=== PATIENT | male | born 1965 | race Caucasian/White ===

== ENCOUNTER 2017-07-22 10:34 | Day surgery (SDC) | payer MEDICAID, SELFPAY ==
[2017-07-22 11:11] VITALS: BP 122/83; BP 134/79; PULSE 80; PULSE 84; RESP 18; TEMP 36.8; O2SAT 97; O2SAT 98
[2017-07-22 11:36] VITALS: BP 128/96; PULSE 76; RESP 18; O2SAT 97
--- NOTE | 2017-07-22 11:37 | HMH.PMPROC ---
- Procedure Date: 07/22/17 Time: 11:41 Anesthesiologist:: Scott Gant CRNA Complications:: None Pre-procedure Diagnosis:: Disc disease lumbar spine multiple levels. Lumbar radiculopathy symptoms. Lumbar postlaminectomy syndrome. Post-procedure Diagnosis:: Same. Indications for Procedure:: This patient is a very pleasant 51-year-old white male that we are treating for chronic low back pain secondary to degenerative disc disease lumbar spine. Lumbar postlaminectomy syndrome. Or radiculopathy symptoms. We can manage him with intrathecal pain pump hydromorphone 1 mg/mL. We will increase his concentration today to 2 mg/mL. His rate will be continued at 0.17 mg per day. He reports today he is doing very well. Slight pain in the lumbar spine area at times. Objective: Patient is awake alert oriented ?3. No acute distress. Flexion extension the lumbar spine somewhat guarded secondary to pain. Deep tendon reflexes upper and lower extremities normal. Motor strength upper and lower extremities normal. There is no gross sensory deficit. Gait is normal. Procedure Details:: Details of the procedure were explained to the patient. Patient was taken to the procedure room placed in the sitting position. Pain pump was cleansed using chlorhexidine as a cleansing solution. The pump was accessed with ease using a 22-gauge needle from the refill kit. 10 mL of solution was withdrawn and discarded appropriately. The pump was then filled with 20 cc of hydromorphone 2 mg/mL. The pump was interrogated. The rate was continued at 0.17 mg per day. Patient tolerated the procedure without difficulty. There were no complications. Plan and Disposition:: Patient was reevaluated 10 minutes post procedure. He is doing very well. He will return to see us in the pain clinic further evaluation.
[2017-07-22 11:38] VITALS: BP 135/95; PULSE 89; RESP 20; O2SAT 97
== END 2017-07-22 11:55 | disposition home or self-care (01) ==
LOC: SC.PAINP 10:37
PROVIDERS: Family Provider Nurse Practitioner Family; PCP Nurse Practitioner Family; Visit Provider Nurse Anesthetist, Certified Registered
DX: M51.16 Intervertebral disc disorders with radiculopathy, lumbar region (principal); M96.1 Postlaminectomy syndrome, not elsewhere classified
CPT/HCPCS: 95991

== ENCOUNTER 2019-11-05 10:16 | Day surgery (SDC) | payer MEDICARE, SELFPAY ==
[2019-11-05 10:30] VITALS: BP 142/83; PULSE 74; RESP 18; TEMP 36.6; O2SAT 97; BMI 27.1
[2019-11-05 10:57] VITALS: BP 132/85; PULSE 85
[2019-11-05 10:58] VITALS: BP 128/89; PULSE 75; RESP 18; TEMP 36.6; O2SAT 99
--- NOTE | 2019-11-05 11:01 | HMH.PMPROC ---
- Procedure Date: 11/05/19 Time: 11:01 Anesthesiologist:: Rad Mooney MD Complications:: None Pre-procedure Diagnosis:: Degenerative disc disease of lumbar spine with lumbar radiculopathy symptoms Post-procedure Diagnosis:: Same Indications for Procedure:: This patient is a pleasant 54-year-old white male who we are treating for low back pain with lumbar radiculopathy symptoms. He is doing well with his current intrathecal Dilaudid dose of 0.22 mg/day. He is having some increasing pain with increased activity. We will refill his pump and increase his infusion slightly today. Juan Manuel and urine drug screen are all appropriate Juan Manuel [phone]. He does have an antalgic gait. Motor strength of the lower extremities is 5/5. There are no gross sensory deficit. Procedure Details:: Pain pump refill Informed consent was obtained and the risks and benefits of the procedure was explained to the patient. The patient was taken to the procedure room. The pump was interrogated. The area over the pump was prepped using ChloraPrep. The pump was accessed with a 22-gauge needle. Approximately 2 mL's of the intrathecal solution was withdrawn and discarded. The pump was then refilled with 20 mL's of intrathecal Dilaudid 2 mg/mL. The pump was interrogated and the infusion was increased to 0.25 mg/day. The patient tolerated the procedure well with no complication. Plan and Disposition:: We will follow-up with him at his next pump refill. He has any problems or questions he is to call us back in the pain clinic.
[2019-11-05 11:06] VITALS: BP 144/84; PULSE 80; RESP 18; O2SAT 97
== END 2019-11-05 11:08 | disposition home or self-care (01) ==
LOC: SC.PAINP 10:16
PROVIDERS: PCP Nurse Practitioner Family; Visit Provider Anesthesiology
DX: M51.16 Intervertebral disc disorders with radiculopathy, lumbar region (principal)
CPT/HCPCS: 62370

== ENCOUNTER 2020-03-06 14:31 | Day surgery (SDC) | payer MEDICARE, SELFPAY ==
[2020-03-06 15:11] VITALS: BP 145/89; PULSE 73; RESP 18; TEMP 36.4; O2SAT 94; BMI 31.1
[2020-03-06 15:51] VITALS: BP 126/86; PULSE 78; RESP 18
[2020-03-06 15:53] VITALS: BP 126/86; PULSE 76; RESP 18; O2SAT 97
[2020-03-06 16:03] VITALS: BP 139/97; PULSE 79; RESP 18; O2SAT 96
--- NOTE | 2020-03-09 16:05 | P.PCN_ITS ---
- Procedure Date: 03/06/20 Time: 15:45 Anesthesiologist:: Mikki Gonzales APRN Complications:: None Pre-procedure Diagnosis:: Degenerative disc disease lumbar spine lumbar radiculopathy Post-procedure Diagnosis:: Same Indications for Procedure:: Patient is a pleasant 54-year-old white male who presents today for intrathecal pain pump refill and reprogram. Overall he is doing well with his intrathecal infusion of Dilaudid 0.25 mg a day. He would like a slight increase. He denies side effects to his medication. He rates his pain today 4 out of 10. Patient Juan Manuel reviewed and appropriate urine drug screens have been appropriate. 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 The patient was taken to the procedure room where noninvasive monitoring was placed including noninvasive blood pressure cuff and pulse oximeter. Patient's pump was interrogated. The area over the pump was cleansed with chlorhexidine as a cleansing solution. In sterile fashion the pump was accessed with a 22-gauge needle. Approximately 5 mL's were removed of the pump solution and discarded appropriately. The pump was then refilled with 20 mL's of Dilaudid 2 mg/mL. The needle was withdrawn and a bandage was placed over the puncture site. The infusion rate was reprogrammed to increase to 0.3 mg/day. The patient tolerated the procedure well. Plan and Disposition:: See the patient back at his next intrathecal pain pump refill and reprogram he has been instructed to call the office if he has any issues prior to his next appointment. Dr. Mooney has reviewed this note and agrees with this plan of care. This note was dictated using voice recognition software and may contain errors or omissions
== END 2020-03-06 16:04 | disposition home or self-care (01) ==
LOC: SC.PAINP 14:33
PROVIDERS: PCP Nurse Practitioner Family; Visit Provider Clinical Nurse Specialist Family Health
DX: M51.16 Intervertebral disc disorders with radiculopathy, lumbar region (principal); I10 Essential (primary) hypertension; E78.5 Hyperlipidemia, unspecified; Z79.899 Other long term (current) drug therapy; Z88.1 Allergy status to other antibiotic agents; Z91.041 Radiographic dye allergy status
CPT/HCPCS: 62370

== ENCOUNTER 2020-06-19 14:12 | Day surgery (SDC) | payer MEDICARE, SELFPAY ==
[2020-06-19 14:29] VITALS: BP 139/80; PULSE 80; RESP 18; TEMP 36.8; O2SAT 98; BMI 30.3
[2020-06-19 14:50] VITALS: BP 135/75; PULSE 82; RESP 18; O2SAT 98
[2020-06-19 14:54] VITALS: BP 138/88; PULSE 87; RESP 18; O2SAT 98
--- NOTE | 2020-06-19 14:57 | HMH.PMPROC ---
- Procedure Date: 06/19/20 Time: 14:57 Anesthesiologist:: Mikki Gonzales APRN Complications:: None Pre-procedure Diagnosis:: Degenerative disc disease lumbar spine lumbar radiculopathy Post-procedure Diagnosis:: Same Indications for Procedure:: Patient is a pleasant 54-year-old white male who presents today for intrathecal pain pump refill and reprogram. Patient currently on a Dilaudid pump 0.3 mg/day. Overall doing well. He denies side effects to his medication currently rates his pain a 6 out of 10 however he states that he recently did a large amount of yard work including cutting a tree down which made his pain worse. Overall he is doing well on his intrathecal therapy. Patient [facility] #[id number] reviewed and appropriate. Drug screens have been appropriate. 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 The patient was taken to the procedure room where noninvasive monitoring was placed including noninvasive blood pressure cuff and pulse oximeter. Patient's pump was interrogated. The area over the pump was cleansed with chlorhexidine as a cleansing solution. In sterile fashion the pump was accessed with a 22-gauge needle. Approximately 3.5 mL's were removed of the pump solution and discarded appropriately. The pump was then refilled with 20 mL's of Dilaudid 2 mg/mL. The needle was withdrawn and a bandage was placed over the puncture site. The infusion rate was reprogrammed to continued at 0.3 mg/day. The patient tolerated the procedure well. Plan and Disposition:: We will see the patient back at his next intrathecal pain pump refill and reprogram he has been instructed to call the office if he has any issues prior to his next appointment. Dr. Mooney has reviewed this note and agrees with this plan of care. This note was dictated using voice recognition software and may contain errors or omissions
[2020-06-19 15:05] VITALS: BP 149/93; PULSE 80; RESP 18; O2SAT 98
== END 2020-06-19 15:06 | disposition home or self-care (01) ==
LOC: SC.PAINP 14:13
PROVIDERS: PCP Nurse Practitioner Family; Visit Provider Clinical Nurse Specialist Family Health
DX: M51.16 Intervertebral disc disorders with radiculopathy, lumbar region (principal); Z88.1 Allergy status to other antibiotic agents; Z79.899 Other long term (current) drug therapy; E78.5 Hyperlipidemia, unspecified; I10 Essential (primary) hypertension; K21.9 Gastro-esophageal reflux disease without esophagitis
CPT/HCPCS: 95991

== ENCOUNTER 2020-10-09 14:17 | Day surgery (SDC) | payer MEDICARE, SELFPAY ==
[2020-10-09 14:33] VITALS: BP 147/88; PULSE 95; RESP 18; TEMP 36.4; O2SAT 98; BMI 38.3
[2020-10-09 15:05] VITALS: BP 174/78; PULSE 82; RESP 18; O2SAT 98
[2020-10-09 15:07] VITALS: BP 175/84; PULSE 74; RESP 18; O2SAT 98
--- NOTE | 2020-10-09 15:08 | HMH.PMPROC ---
- Procedure Date: 10/09/20 Time: 15:08 Anesthesiologist:: Mikki Gonzales APRN Complications:: None Pre-procedure Diagnosis:: Disc disease lumbar spine lumbar radiculopathy, back pain Post-procedure Diagnosis:: Same Indications for Procedure:: Patient is a pleasant 54-year-old white male who presents today for intrathecal pain pump refill and reprogram he is currently on Dilaudid 0.3 mg/day. Overall doing well. He denies side effects with medication. He rates his pain today 4 out of 10 he does not need any changes today Juan Manuel and drug screens appropriate. Procedure Details:: Informed consent was obtained and the risk and benefits of the procedure were explained to the patient. The patient was taken to the procedure room where noninvasive monitoring was placed including noninvasive blood pressure cuff and pulse oximeter. Patient's pump was interrogated. The area over the pump was cleansed with chlorhexidine as a cleansing solution. In sterile fashion the pump was accessed with a 22-gauge needle. Approximately 3 mL's were removed of the pump solution and discarded appropriately. The pump was then refilled with 20 mL's of Dilaudid 2 mg/mL. The needle was withdrawn and a bandage was placed over the puncture site. The infusion rate was reprogrammed to continued at 0.3 mg/day. The patient tolerated the procedure well. Plan and Disposition:: I will see the patient back at his next intrathecal pain pump refill and reprogram he has been instructed to call the office if he has any issues prior to his next appointment. Dr. Mooney has reviewed this note and agrees with this plan of care. This note was dictated using voice recognition software and may contain errors or omissions
[2020-10-09 15:13] VITALS: BP 137/88; PULSE 80; RESP 20; O2SAT 98
== END 2020-10-09 15:14 | disposition home or self-care (01) ==
LOC: SC.PAINP 14:18
PROVIDERS: PCP Nurse Practitioner Family; Visit Provider Clinical Nurse Specialist Family Health
DX: M51.16 Intervertebral disc disorders with radiculopathy, lumbar region (principal); Z45.1 Encounter for adjustment and management of infusion pump; E78.5 Hyperlipidemia, unspecified; I10 Essential (primary) hypertension; G43.909 Migraine, unspecified, not intractable, without status migrainosus; N40.0 Benign prostatic hyperplasia without lower urinary tract symptoms; K21.9 Gastro-esophageal reflux disease without esophagitis; Z88.1 Allergy status to other antibiotic agents; Z91.041 Radiographic dye allergy status; Z79.899 Other long term (current) drug therapy
CPT/HCPCS: 95991

== ENCOUNTER 2021-02-05 13:57 | Day surgery (SDC) | payer MEDICARE, SELFPAY ==
[2021-02-05 14:26] VITALS: BP 139/74; PULSE 81; RESP 18; TEMP 36.4; O2SAT 98; BMI 32.4
[2021-02-05 15:07] VITALS: BP 132/89; PULSE 67; RESP 18; O2SAT 95
[2021-02-05 15:08] VITALS: BP 132/89; PULSE 62; RESP 18; O2SAT 95
--- NOTE | 2021-02-05 15:20 | P.PCN_ITS ---
- Procedure Date: 02/05/21 Time: 15:20 Anesthesiologist:: Mari Hernandez APRN Complications:: None Pre-procedure Diagnosis:: Degenerative disc disease lumbar spine with lumbar radiculopathy symptoms Post-procedure Diagnosis:: Same Indications for Procedure:: Patient is a pleasant 55-year-old white male who presents today for intrathecal pain pump refill and reprogram. He is currently on Dilaudid at 0.3 mg/day. He was increased at the last visit. He says since then, he has an section of bugs crawling . He says he also had the sensation with morphine. We will decrease him today to see if his symptoms subside. His Juan Manuel and drug screen are appropriate. Patient does rate his pain a 4 out of 10. Physical exam General: Alert and oriented x3, no acute distress, pleasant and cooperative, [on room air] Lungs: Respirations even and unlabored, symmetrical chest expansion Eyes: PERRL Musculoskeletal: Flexion and extension of lumbar [spine] somewhat guarded secondary to pain, strength in upper and lower extremities [5/5], [antalgic gait noted] Neurological: Speech clear, [roof bolter helper equal], no gross sensory deficit Procedure Details:: Informed consent was obtained and the risk and benefits of the procedure were explained to the patient. The patient was taken to the procedure room where noninvasive monitoring was placed including noninvasive blood pressure cuff and pulse oximeter. Patient's pump was interrogated. The area over the pump was cleansed with chlorhexidine as a cleansing solution. In sterile fashion the pump was accessed with a 22-gauge needle. Approximately 2 mls of the pump solution was removed and discarded appropriately. The pump was then refilled with 20 mL's of Dilaudid 2 mg per male. The needle was withdrawn and a bandage was placed over the puncture site. The infusion rate was reprogrammed at increased to Dilaudid at 0.27 mg/day. The patient tolerated well with no complication. Plan and Disposition:: We will see the patient back at the next refill. If the patient has any questions, contact the clinic. Patient has been instructed to contact the clinic with any concerns before the next appointment. Dr. Mooney has reviewed this note and agrees with this plan of care. This note was dictated using voice recognition software and make contain errors or omissions.
[2021-02-05 15:21] VITALS: BP 123/71; PULSE 70; RESP 18; O2SAT 98
== END 2021-02-05 15:21 | disposition home or self-care (01) ==
LOC: SC.PAINP 14:01
PROVIDERS: PCP Nurse Practitioner Family; Visit Provider Clinical Nurse Specialist Family Health
DX: M51.16 Intervertebral disc disorders with radiculopathy, lumbar region (principal); Z45.1 Encounter for adjustment and management of infusion pump
CPT/HCPCS: 62370

== ENCOUNTER 2021-05-29 12:47 | Day surgery (SDC) | payer MEDICARE, SELFPAY ==
[2021-05-29 13:06] VITALS: BP 152/89; PULSE 70; RESP 18; TEMP 36.7; O2SAT 98; BMI 35.5
--- NOTE | 2021-05-29 13:14 | HMH.PMPROC ---
- Procedure Date: 05/29/21 Time: 13:14 Anesthesiologist:: Mari Hernandez APRN Complications:: None Pre-procedure Diagnosis:: Degenerative disc disease bar spine with lumbar radiculopathy symptoms, Low back pain Post-procedure Diagnosis:: Same Indications for Procedure:: Patient is a 55-year-old white male who presents today for intrathecal pain pump refill and reprogram. He is having low back pain with radiation into bilateral lower extremities. He is currently on Dilaudid at 0.27 mg/day and denies any side effects at this time. He does rate his pain a 6 out of 10. He would like an increase today. He says winter months are coming and his pain seems to worsen. The colder weather. Patient does travel from [facility] and is requesting to only return every 6 months for refills. We will increase the patient's concentration of medication at his next visit so that we can prolong his time between refills. He is currently on Dilaudid at 0.27 mg/day with a concentration of 2 mg/mL. Patient's Juan Manuel and drug screen are appropriate. Physical exam General: Alert and oriented x3, no acute distress, pleasant and cooperative Lungs: Respirations even and unlabored, symmetrical chest expansion Eyes: PERRL Musculoskeletal: Flexion and extension of lumbar [spine] somewhat guarded secondary to pain, [antalgic gait noted] Neurological: Speech clear, no gross sensory deficit Procedure Details:: Informed consent was obtained and the risk and benefits of the procedure were explained to the patient. The patient was taken to the procedure room where noninvasive monitoring was placed including noninvasive blood pressure cuff and pulse oximeter. Patient's pump was interrogated. The area over the pump was cleansed with chlorhexidine as a cleansing solution. In sterile fashion the pump was accessed with a 22-gauge needle. Approximately 5 mls of the pump solution was removed and discarded appropriately. The pump was then refilled with 20 mL's of Dilaudid 2 mg/mL. The needle was withdrawn and a bandage was placed over the puncture site. The infusion rate was reprogrammed at Dilaudid at 0.31 mg/day. The patient tolerated well with no complication. Plan and Disposition:: We will plan to increase the patient's concentration medication to Dilaudid at 5 mg/mL at next refill. This will help prolong between refill visits. He does travel from [facility]. He has been advised he can contact the clinic if he has any problems before his next appointment. Risks and benefits of the medication have been explained in detail to the patient. The patient does understand the risk of dependence on the medication when given over a prolonged period. Patient has been advised of risks of oversedation with the prescribed medication. Narcan has been offered to the paitent in the event of oversedation. Patient has been advised that a family member should also be educated regarding administration of Narcan. The patient has been advised to consult with his/her primary care provider and pharmacist regarding drug-drug interaction of medications currently prescribed. Patient has been prescribed a controlled substance after being counseled on the medication, medication safety, and possible side effects. JUAN MANUEL report has been obtained and reviewed prior to prescription and found to be appropriate. Opioid contract was reviewed and signed by the patient, and that they have agreed to all of the terms set forth by our compliance program. Patient has been instructed to contact the clinic with any concerns before the next appointment. Dr. Mooney has reviewed this note and agrees with this plan of care. This note was dictated using voice recognition software and make contain errors or omissions.
[2021-05-29 13:16] VITALS: BP 172/76; PULSE 68; RESP 18; O2SAT 98
[2021-05-29 13:18] VITALS: PULSE 78; RESP 18; O2SAT 95
[2021-05-29 13:35] VITALS: BP 152/89; PULSE 70; RESP 20; O2SAT 98
== END 2021-05-29 13:36 | disposition home or self-care (01) ==
LOC: SC.PAINP 12:49
PROVIDERS: PCP Nurse Practitioner Family; Visit Provider Clinical Nurse Specialist Family Health
DX: M51.16 Intervertebral disc disorders with radiculopathy, lumbar region (principal); Z45.1 Encounter for adjustment and management of infusion pump
CPT/HCPCS: 62370; 80305

== ENCOUNTER → 2021-05-29 13:46 | Outpatient (CLI) | payer MEDICARE, SELFPAY ==
[2021-05-29 14:56] LABS: Amphetamine/Metha Screen,Urine Negative ng/ml (<1000); Barbiturates Screen,Urine Negative ng/ml (<200)
[2021-05-29 14:58] LABS: Benzodiazepines Screen,Urine Negative ng/ml (<200)
[2021-05-29 14:59] LABS: Cannabinoid Screen,Urine Negative ng/ml (<50); Cocaine Screen,Urine Negative ng/ml (<300)
[2021-05-29 15:00] LABS: Methadone Screen,Urine Negative ng/ml (<300)
[2021-05-29 15:01] LABS: Opiate Screen,Urine Negative ng/ml (<300); Phencyclidine Screen,Urine Negative ng/ml (<25)
== END ==
PROVIDERS: Visit Provider Clinical Nurse Specialist Family Health
DX: Z79.891 Long term (current) use of opiate analgesic (principal)
CPT/HCPCS: 80305

== ENCOUNTER 2021-09-10 12:41 | Day surgery (SDC) | payer MEDICARE, SELFPAY ==
[2021-09-10 13:10] VITALS: BP 131/89; PULSE 84; RESP 20; TEMP 36.5; O2SAT 96; BMI 31.1
[2021-09-10 13:22] VITALS: BP 167/92; PULSE 85; RESP 18; O2SAT 95
--- NOTE | 2021-09-10 13:39 | P.PCN_ITS ---
- Procedure Date: 09/10/21 Time: 13:39 Anesthesiologist:: Fatimah Rodriguez MD Complications:: None Pre-procedure Diagnosis:: Degenerative disc disease of the lumbar spine with lumbar radiculopathy Post-procedure Diagnosis:: Same Indications for Procedure:: This patient is a very pleasant 55-year-old white male who presents today for a pump refill and reprogram. He is currently being treated for degenerative disease of lumbar spine with lumbar radiculopathy. He has a pump with a flow [place] system with intrathecal Dilaudid 2 mg/mL at 0.31 mg/day on constant flow. He states his pain has gradually worsened since the last refill at which time he believed he was having side effects related to the intrathecal Dilaudid and was requesting to decrease. However today he states that since his pain has increased he is requesting a pump adjustment with an increase to his daily dose settings. The plan for today is for the patient to undergo intrathecal pain pump refill and reprogram with an increase in his daily dose settings by 20%. Procedure Details:: Informed consent was obtained and the risks and benefits of the procedure was explained to the patient. The patient was taken to the procedure room. The pump was interrogated. The area over the pump was prepped using ChloraPrep. The pump was accessed with a 22-gauge needle. Approximately 4.5 mL's of the intrathecal solution was withdrawn and discarded. The pump was then refilled with 20 mL's of intrathecal [Dilaudid 2 mg/mL]. The pump was interrogated and the infusion was [increased to 0.37 mg per day]. The patient tolerated the procedure well with no complications. Next refill date is on [December 07, 2021]. Plan and Disposition:: Follow-up with this patient on her before his next refill appointment. We will reassess his chronic pain symptoms and make any additional pump adjustments if indicated. [facility] #[id number] and prior drug screens reviewed and appropriate.
[2021-09-10 13:40] VITALS: BP 136/75; PULSE 75; RESP 20; O2SAT 98
[2021-09-10 13:49] VITALS: BP 168/90; PULSE 60; RESP 18; O2SAT 90
[2021-09-10 17:55] LABS: Amphetamine/Metha Screen,Urine Negative ng/ml (<1000)
[2021-09-10 17:56] LABS: Barbiturates Screen,Urine Negative ng/ml (<200)
[2021-09-10 17:58] LABS: Benzodiazepines Screen,Urine Negative ng/ml (<200); Cannabinoid Screen,Urine Negative ng/ml (<50)
[2021-09-10 17:59] LABS: Cocaine Screen,Urine Negative ng/ml (<300); Methadone Screen,Urine Negative ng/ml (<300)
[2021-09-10 18:00] LABS: Opiate Screen,Urine Negative ng/ml (<300)
[2021-09-10 18:01] LABS: Phencyclidine Screen,Urine Negative ng/ml (<25)
[2021-09-25 19:27] LABS: Opiates Negative (Cutoff=100)
== END 2021-09-10 13:40 | disposition home or self-care (01) ==
LOC: SC.PAINP 12:43
PROVIDERS: PCP Nurse Practitioner Family; Visit Provider Anesthesiology Pain Medicine
DX: M51.16 Intervertebral disc disorders with radiculopathy, lumbar region (principal); Z45.1 Encounter for adjustment and management of infusion pump; E78.5 Hyperlipidemia, unspecified; I10 Essential (primary) hypertension; K21.9 Gastro-esophageal reflux disease without esophagitis; Z72.0 Tobacco use
CPT/HCPCS: 62370; 80305; 80361; 80365; G0480

== ENCOUNTER 2021-11-26 13:12 | Day surgery (SDC) | payer MEDICARE, SELFPAY ==
[2021-11-26 13:36] VITALS: BP 140/72; PULSE 93; RESP 20; TEMP 37.1; O2SAT 95; BMI 34.2
[2021-11-26 13:55] VITALS: BP 142/97; PULSE 87; RESP 18; O2SAT 96
[2021-11-26 13:57] VITALS: BP 144/84; PULSE 85; RESP 18; O2SAT 95
--- NOTE | 2021-11-26 14:00 | HMH.PMPROC ---
- Procedure Date: 11/26/21 Time: 14:00 Anesthesiologist:: JORGITO Dunbar Complications:: None Pre-procedure Diagnosis:: Degenerative disc disease of lumbar spine with lumbar radiculopathy symptoms Post-procedure Diagnosis:: Same Indications for Procedure:: Patient is a pleasant 56-year-old male who presents today for intrathecal pain pump refill and reprogram. The patient is being treated for degenerative disc disease of lumbar spine with lumbar radiculopathy symptoms. Patient is currently being managed with Dilaudid 2 mg/mL at a rate of 0.37 mg/day. Patient denies any side effects from this medication. Patient rates pain a 4 out of 10. Drug screen is appropriate. Juan Manuel [phone] with an active morphine equivalent of 0 has been reviewed and is appropriate. Physical exam General: Alert and oriented x3, no acute distress, pleasant and cooperative Lungs: Respirations even and unlabored, symmetrical chest expansion Eyes: PERRL Musculoskeletal: Flexion and extension of lumbar [spine] somewhat guarded secondary to pain, [antalgic gait noted] Neurological: Speech clear, no gross sensory deficit Procedure Details:: Informed consent was obtained and the risk and benefits of the procedure were explained to the patient. The patient was taken to the procedure room where noninvasive monitoring was placed including noninvasive blood pressure cuff and pulse oximeter. Patient's pump was interrogated. The area over the pump was cleansed with chlorhexidine as a cleansing solution. [Fluoroscopy was used to access the pump]. In sterile fashion the pump was accessed with a 22-gauge needle. Approximately 5 mls of the pump solution was removed and discarded appropriately. The pump was then refilled with 20 mL's of Dilaudid 2 mg/mL. The needle was withdrawn and a bandage was placed over the puncture site. The infusion rate was reprogrammed and continued at Dilaudid 0.37 mg/day. The patient tolerated well with no complication. Plan and Disposition:: Patient states that he has been having some itchiness with the Dilaudid. He was having the same itchiness when he had morphine in but this is not as severe. I will start the patient on Vistaril 25 mg twice a day as needed. We will see the patient back in the clinic at the next intrathecal refill. Patient has been instructed to contact the clinic with any concerns before the next appointment. Dr. Mooney has reviewed this note and agrees with this plan of care. This note was dictated using voice recognition software and make contain errors or omissions.
[2021-11-26 14:08] VITALS: BP 124/74; PULSE 87; RESP 20; O2SAT 93
== END 2021-11-26 14:09 | disposition home or self-care (01) ==
LOC: SC.PAINP 13:14
PROVIDERS: PCP Nurse Practitioner Family; Visit Provider Student in an Organized Health Care Education/Training Program
DX: M51.16 Intervertebral disc disorders with radiculopathy, lumbar region (principal); Z45.1 Encounter for adjustment and management of infusion pump; K21.9 Gastro-esophageal reflux disease without esophagitis; E78.5 Hyperlipidemia, unspecified; I10 Essential (primary) hypertension; M19.90 Unspecified osteoarthritis, unspecified site; G43.909 Migraine, unspecified, not intractable, without status migrainosus; F41.9 Anxiety disorder, unspecified; Z79.899 Other long term (current) drug therapy; Z88.1 Allergy status to other antibiotic agents; Z91.041 Radiographic dye allergy status
CPT/HCPCS: 95991

== ENCOUNTER 2022-02-22 09:24 | Day surgery (SDC) | payer MEDICARE, SELFPAY ==
[2022-02-22 09:47] VITALS: BP 149/63; PULSE 72; TEMP 36.9; O2SAT 95; BMI 32.0
[2022-02-22 10:03] VITALS: BP 158/99; PULSE 52; RESP 20; O2SAT 100
--- NOTE | 2022-02-22 10:07 | HMH.PMPROC ---
- Procedure Date: 02/22/22 Time: 10:07 Anesthesiologist:: Scott Gant CRNA Complications:: None Pre-procedure Diagnosis:: Degenerative disc disease of lumbar spine with lumbar radiculopathy symptoms Post-procedure Diagnosis:: Same Indications for Procedure:: Patient is a pleasant 56-year-old male who presents today for intrathecal pain pump refill and reprogram. Patient is currently being treated for degenerative disc disease of the lumbar spine with lumbar radiculopathy symptoms. Patient rates his pain today a 7 out of 10. We are currently managing his pain with Dilaudid 2 mg/mL at a rate of 0.37 mg/day. Patient denies any side effects from this medication. Patient denies any change to the location or type of pain he experiences. His Juan Manuel is [phone]. Has been reviewed and appropriate. Physical exam General: Alert and oriented x3, no acute distress, pleasant and cooperative Lungs: Respirations even and unlabored, symmetrical chest expansion Eyes: PERRL Musculoskeletal: Flexion extension of lumbar spine somewhat guarded secondary to pain, antalgic gait noted Neurological: Speech clear, no gross sensory deficit Procedure Details:: Informed consent was obtained and the risk and benefits of the procedure were explained to the patient. The patient was taken to the procedure room where noninvasive monitoring was placed on the patient including a noninvasive blood pressure cuff and pulse oximeter. Patient's pump was interrogated. The area over the pump was cleansed with a chlorhexidine as a cleansing solution. In sterile fashion the pump was accessed using a 22-gauge needle. Approximately 3.5 mL of the pump solution was removed and discarded appropriately. The pump was then refilled with 20 mL of Dilaudid 2 mg/mL. The needle was withdrawn and a bandage was placed over the puncture site. The infusion rate was reprogrammed and continued at Dilaudid 0.37 mg/day. Plan and Disposition:: Patient states he is doing well with his current medication regimen. We will see the patient back at the clinic at the next intrathecal pump refill. Patient has been instructed to contact the clinic with any concerns before the next appointment. Dr. Mooney has reviewed this note and agrees with this plan of care. This note has been dictated using voice recognition software and may contain errors or omissions.
[2022-02-22 10:14] VITALS: BP 142/83; PULSE 71; RESP 17; O2SAT 95
== END 2022-02-22 10:15 | disposition home or self-care (01) ==
LOC: SC.PAINP 09:24
PROVIDERS: PCP Nurse Practitioner Family; Visit Provider Nurse Anesthetist, Certified Registered
DX: M51.16 Intervertebral disc disorders with radiculopathy, lumbar region (principal)
CPT/HCPCS: 62370

== ENCOUNTER 2022-05-17 12:01 | Day surgery (SDC) | payer MEDICARE, SELFPAY ==
[2022-05-17 13:07] VITALS: BP 138/71; PULSE 69; RESP 18; TEMP 37.2; O2SAT 91; BMI 31.7
[2022-05-17 13:46] VITALS: BP 113/95; PULSE 65; RESP 18; O2SAT 98
[2022-05-17 13:50] VITALS: BP 126/63; PULSE 70; RESP 18; O2SAT 98
--- NOTE | 2022-05-17 13:54 | P.PCN_ITS ---
[facility] Procedure Note Date: 05/17/22 Time: 13:54
--- NOTE | 2022-05-17 13:54 | P.PCN_ITS ---
Procedure Date: 05/17/22 Time: 13:55 Anesthesiologist:: Rad Mooney MD Complications:: None Pre-procedure Diagnosis:: Degenerative disc disease of lumbar spine with lumbar radiculopathy symptoms Post-procedure Diagnosis:: Same Indications for Procedure:: This patient is a pleasant 56-year-old white male who we are treating for low back pain with lumbar radiculopathy symptoms. He currently has an intrathecal Dilaudid pain pump in place going at 0.37 mg/day. He is doing well with his pum p. We will refill him today and continue him at the same dose. Juan Manuel and drug screen are all appropriate. He does have an antalgic gait. Motor strength of lower extremities is 5/5. There is no gross sensory deficit. Procedure Details:: Informed consent was obtained and the risks and benefits of the procedure was explained to the patient. The patient was taken to the procedure room. The pump was interrogated. The area over the pump was prepped using ChloraPrep. The pump was accessed with a 22-gauge needle. Approximately 4 mL's of the i ntrathecal solution was withdrawn and discarded. The pump was then refilled with 20 mL's of intrathecal Dilaudid 2 mg/mL. The pump was interrogated and the infusion was continued at 0.37 mg/day. The patient tolerated the procedure well with no complication. Plan and disposition: We will follow-up with this patient at his next pump refill. We continued him at 0.37 mg/day of intrathecal Dilaudid. If he has any problems questions she is to call us back in the pain clinic. Plan and Disposition:: We will follow-up with him in 2 weeks. Will reevaluate symptoms at that time.
--- NOTE | 2022-05-17 13:54 | HMH.PROCNOTE ---
[facility] Procedure Note Date: 05/17/22 Time: 13:54
[2022-05-17 13:59] VITALS: BP 128/79; PULSE 70; RESP 18; O2SAT 97
== END 2022-05-17 14:00 | disposition home or self-care (01) ==
PROVIDERS: PCP Nurse Practitioner Family; Visit Provider Anesthesiology
DX: M51.16 Intervertebral disc disorders with radiculopathy, lumbar region (principal)
CPT/HCPCS: 95991

== ENCOUNTER 2022-08-13 10:48 | Day surgery (SDC) | payer MEDICARE, SELFPAY ==
[2022-08-13 10:59] VITALS: BP 166/91; PULSE 95; RESP 18; TEMP 36.6; O2SAT 93; BMI 32.5
[2022-08-13 11:23] VITALS: BP 165/87; PULSE 98; RESP 18; O2SAT 98
[2022-08-13 11:25] VITALS: BP 165/87; PULSE 98; RESP 18; O2SAT 98
[2022-08-13 11:33] VITALS: BP 155/91; PULSE 90; RESP 18; O2SAT 96
--- NOTE | 2022-08-13 11:42 | EXP.PAIN.PRO ---
Procedure Date: 08/13/22 Time: 11:30 Anesthesiologist:: Scott Gant CRNA Complications:: None Pre-procedure Diagnosis:: Degenerative disc disease lumbar spine multilevels. Lumbar radiculopathy symptoms Post-procedure Diagnosis:: Same. Indications for Procedure:: This patient is a pleasant 56-year-old male comes our clinic today for intrathecal pain pump interrogation and refill. He is currently being managed with Dilaudid 2 mg/mL at 0.370 mg/day. Patient doing very well in terms of pain with his current management. Patient complains today of bilateral upper and lower extremities generalized itching. I discussed in detail with the patient regarding this could be coming from the hydromorphone intrathecally. I suggest to the patient Benadryl 50 mg 1 p.o. twice daily. We will see if this helps him. He will return to the clinic for a follow-up visit as needed. Procedure Details:: Details of the procedure explained the patient patient was taken to procedure room placed in sitting position. The area of the pump was cleansed with chlorhexidine as a cleansing solution. The pump was accessed with ease using 22-gauge inch and half needle. 3 mL of solution was withdrawn and discarded appropriately. The pump was then filled with hydromorphone 2 mg/mL. The pump was interrogated and the rate will stay at 0.3700 mg/day. Plan and Disposition:: Patient was discharged without incident.
== END 2022-08-13 11:33 | disposition home or self-care (01) ==
LOC: SC.PAINP 10:48
PROVIDERS: PCP Nurse Practitioner Family; Visit Provider Nurse Anesthetist, Certified Registered
DX: Z45.1 Encounter for adjustment and management of infusion pump (principal); M51.16 Intervertebral disc disorders with radiculopathy, lumbar region
CPT/HCPCS: 95991

== ENCOUNTER 2022-10-29 11:11 | Day surgery (SDC) | payer MEDICARE, SELFPAY ==
[2022-10-29 11:22] VITALS: BP 122/75; PULSE 68; RESP 18; TEMP 36.6; O2SAT 93; BMI 33.2
[2022-10-29 11:29] VITALS: BP 114/90; PULSE 71; RESP 18; O2SAT 97
[2022-10-29 11:30] VITALS: BP 114/90; PULSE 71; RESP 18; O2SAT 97
--- NOTE | 2022-10-29 11:36 | P.PCN_ITS ---
Procedure Date: 10/29/22 Time: 11:30 Anesthesiologist:: Scott Gant CRNA Complications:: None Pre-procedure Diagnosis:: Degenerative disc disease lumbar spine multilevels. Lumbar radiculopathy Post-procedure Diagnosis:: Same. Indications for Procedure:: This patient is a very pleasant 57-year-old male comes our clinic today for intrathecal pain pump interrogation and refill. He is currently being managed with Dilaudid 2 mg/mL at 0.370 mg/day. Patient is requesting increase in his c urrent rate. He is having some increased low back pain that he describes as constant, dull, aching. He does not complain of any side effects or complications regarding intrathecal pain pump management. Procedure Details:: Details of the procedure explained to the patient. The patient was taken to the procedure room placed in the sitting position. The area over the pump was cleansed using chlorhexidine as a cleansing solution. The pump was interrogated. The pump was accessed with ease using a 22-gauge inch and a half needle. 5 mL of solution was withdrawn and discarded appropriately. The pump was then filled with 20 cc of Dilaudid 2 mg/mL. The pump will be increased today by 20% to 0.4440 mg/day. Plan and Disposition:: Patient was discharged without incident
[2022-10-29 11:38] VITALS: BP 135/79; PULSE 72; RESP 18; O2SAT 93
== END 2022-10-29 11:38 | disposition home or self-care (01) ==
PROVIDERS: PCP Nurse Practitioner Family; Visit Provider Nurse Anesthetist, Certified Registered
DX: Z45.1 Encounter for adjustment and management of infusion pump (principal); M51.16 Intervertebral disc disorders with radiculopathy, lumbar region
CPT/HCPCS: 62370

== ENCOUNTER 2022-12-31 10:44 | Day surgery (SDC) | payer MEDICARE, SELFPAY ==
[2022-12-31 10:56] VITALS: BP 134/75; PULSE 83; RESP 18; TEMP 36.4; O2SAT 98; BMI 32.9
[2022-12-31 11:12] VITALS: BP 135/92; PULSE 77; RESP 18; O2SAT 98
[2022-12-31 11:13] VITALS: BP 135/92; PULSE 77; RESP 18; O2SAT 98
[2022-12-31 11:20] VITALS: BP 121/72; PULSE 74; RESP 16; O2SAT 98
--- NOTE | 2022-12-31 11:21 | EXP.PAIN.PRO ---
Procedure Date: 12/31/22 Time: 11:00 Anesthesiologist:: Scott Gant CRNA Complications:: None Pre-procedure Diagnosis:: Degenerative disc lumbar spine multilevels. Lumbar radiculopathy. Lumbar postlaminectomy syndrome. Post-procedure Diagnosis:: Same. Indications for Procedure:: Patient is a very pleasant 57-year-old male that comes our clinic today for intrathecal pain pump interrogation and refill. Patient currently being managed with Dilaudid 2 mg/mL at 0.444 mg/day. Patient requested a slight increase at his last refill visit. He reports doing very well today with his current settings. He does not complain of any side effects or complications with the intrathecal pain pump management. Procedure Details:: Details of the procedure explained to the patient. The patient taken to procedure room placed in the sitting position. The area of the pump was cleansed using chlorhexidine as a cleansing solution. The pump was interrogated. The pump was accessed with ease using a 22-gauge inch and a half needle. 5.5 mL of solution was withdrawn and discarded appropriately. The pump was then filled incrementally with 20 cc of Dilaudid 2 mg/mL. The rate will continue the same at 0.444 mg/day. Plan and Disposition:: Patient tolerated procedure without difficulty. No complications.
== END 2022-12-31 11:20 | disposition home or self-care (01) ==
PROVIDERS: PCP Nurse Practitioner Family; Visit Provider Nurse Anesthetist, Certified Registered
DX: M51.16 Intervertebral disc disorders with radiculopathy, lumbar region (principal); M96.1 Postlaminectomy syndrome, not elsewhere classified
CPT/HCPCS: 95991

== ENCOUNTER 2023-03-04 10:22 | Day surgery (SDC) | payer MEDICARE, SELFPAY ==
[2023-03-04 11:07] VITALS: BP 135/73; PULSE 111; RESP 18; TEMP 36.3; O2SAT 93; BMI 33.2
[2023-03-04 11:19] VITALS: BP 147/90; PULSE 78; RESP 18; O2SAT 98
[2023-03-04 11:23] VITALS: BP 147/90; PULSE 78; RESP 18; O2SAT 97
[2023-03-04 11:33] VITALS: BP 138/83; PULSE 78; RESP 18; O2SAT 93
--- NOTE | 2023-03-04 11:42 | EXP.PAIN.PRO ---
Procedure Date: 03/04/23 Time: 11:10 Anesthesiologist:: Scott Gant CRNA Complications:: None Pre-procedure Diagnosis:: Degenerative disc lumbar spine multilevels. Lumbar radiculopathy. Lumbar postlaminectomy syndrome Post-procedure Diagnosis:: Same. Indications for Procedure:: Patient is a very pleasant 57-year-old male that comes our clinic today for intrathecal pain pump interrogation refill. Patient currently being managed with Dilaudid 2 mg/mL at 0.4440 mg/day. Patient doing very well with his current settings. He is not requesting any changes. He does not report any side effects or complications regarding his intrathecal pain pump management. Procedure Details:: Details of the procedure explained to the patient. Patient taken the procedure room placed in the sitting position. The area of the pump was cleansed using chlorhexidine as a cleansing solution. The pump was interrogated. The pump was accessed with ease using a 22-gauge inch and half needle. 6.1 mL of solution was drawn and discarded appropriately. The pump was then filled incrementally with 20 cc of a solution containing Dilaudid 2 mg/mL. The rate will stay the same. Patient tolerated procedure without difficulty. There are no complications Plan and Disposition:: Patient was discharged without incident.
[2023-03-04 14:37] LABS: Amphetamine/Metha Screen,Urine Negative ng/ml (<1000)
[2023-03-04 14:38] LABS: Barbiturates Screen,Urine Negative ng/ml (<200); Benzodiazepines Screen,Urine Negative ng/ml (<200)
[2023-03-04 14:39] LABS: Cannabinoid Screen,Urine Negative ng/ml (<50)
[2023-03-04 14:40] LABS: Cocaine Screen,Urine Negative ng/ml (<300); Methadone Screen,Urine Negative ng/ml (<300)
[2023-03-04 14:41] LABS: Opiate Screen,Urine Negative ng/ml (<300)
[2023-03-04 14:42] LABS: Phencyclidine Screen,Urine Negative ng/ml (<25)
[2023-03-11 15:10] LABS: Codeine Negative (Cutoff=100); Hydrocodone Negative (Cutoff=100); Hydromorphone Positive (.); Morphine Negative (Cutoff=100); Opiates Positive (.)
== END 2023-03-04 11:33 | disposition home or self-care (01) ==
PROVIDERS: Anesthesiology; PCP Nurse Practitioner Family; Visit Provider Nurse Anesthetist, Certified Registered
DX: M51.16 Intervertebral disc disorders with radiculopathy, lumbar region (principal); M96.1 Postlaminectomy syndrome, not elsewhere classified; Z97.8 Presence of other specified devices
CPT/HCPCS: 80305; 80361; 80365; 95991; G0480

== ENCOUNTER 2023-05-13 13:05 | Day surgery (SDC) | payer MEDICARE, SELFPAY ==
[2023-05-13 13:20] VITALS: BP 116/72; PULSE 68; RESP 16; TEMP 36.7; O2SAT 96; BMI 34.0
[2023-05-13 13:30] VITALS: BP 129/93; PULSE 91; RESP 18; O2SAT 96
[2023-05-13 13:32] VITALS: BP 129/93; PULSE 86; RESP 18; O2SAT 96
[2023-05-13 13:40] VITALS: BP 114/76; PULSE 89; RESP 16; O2SAT 96
--- NOTE | 2023-05-13 13:50 | EXP.PAIN.PRO ---
Procedure Date: 05/13/23 Time: 13:35 Anesthesiologist:: Scott Gant CRNA Complications:: None Pre-procedure Diagnosis:: Degenerative disc lumbar spine multilevels. Lumbar radiculopathy. Lumbar postlaminectomy syndrome. Post-procedure Diagnosis:: Same. Indications for Procedure:: Patient is a very pleasant 57-year-old male comes our clinic today for intrathecal pain pump interrogation refill. He is currently being managed with Dilaudid 2 mg/mL at a rate of 0.4440 mg/day. He is doing very well with his current settings. He does not report any side effects. He does not request any changes today. Procedure Details:: Details of the procedure explained to the patient. The patient taken the procedure and placed in the sitting position. The area of the pump was cleansed using chlorhexidine as a cleansing solution. The pump was interrogated. The pump was accessed with ease using a 22-gauge inch and half needle. 4 mL of solution was withdrawn discarded appropriately. The pump was then filled with 20 cc of solution containing Dilaudid 2 mg/mL. The rate will continue at 0.444 mg/day. Patient tolerated procedure without difficulty. There are no complications. Plan and Disposition:: Patient was discharged without incident.
== END 2023-05-13 13:40 | disposition home or self-care (01) ==
PROVIDERS: PCP Nurse Practitioner Family; Visit Provider Nurse Anesthetist, Certified Registered
DX: M51.16 Intervertebral disc disorders with radiculopathy, lumbar region (principal); M96.1 Postlaminectomy syndrome, not elsewhere classified; Z97.8 Presence of other specified devices
CPT/HCPCS: 95991

== ENCOUNTER 2023-12-29 13:40 | Outpatient (POV) | payer MEDICARE, SELFPAY ==
[2023-12-29 14:12] VITALS: BP 140/70; PULSE 87; RESP 18; TEMP 36.6; O2SAT 98; BMI 34.4
--- NOTE | 2023-12-29 15:07 | EXP.PAIN.SOA ---
[facility] Pain Management SOAP Note Subjective:: Patient is a pleasant 58-year-old male who presents today for 6-month follow-up. Today he rates his pain a 3 out of 10. Patient denies any new trauma or injury. He does state overall he is doing well. Patient does have an intrathecal pain pump of Dilaudid 2 mg/mL with a daily dose of 0.444 mg/day. He denies any side effects from this medication. He does state that he recently had an issue with his PTC device and that it did and that now it seems like it is not functioning properly. His Juan Manuel has been reviewed and is appropriate. Review of Systems: General: No recent weight changes, no fever, no sleep disturbances Respiratory: No cough, no shortness of air, no recurring pulmonary infections Cardiovascular/peripheral vascular: No chest pain, no palpitations, no edema, no shortness of breath Gastrointestinal: No new onset incontinence, normal bowel movements reported Genitourinary: No new onset incontinence Musculoskeletal: Low back pain Psychiatric: [Normal mood/affect] Neurological: [Denies weakness in extremities], [denies balance issues] Objective:: Physical Exam: General: Alert and oriented x3, no acute distress, pleasant and cooperative Lungs: Respirations even and unlabored, symmetrical chest expansion Eyes: PERRL Musculoskeletal: Flexion and extension of lumbar [spine] somewhat guarded secondary to pain, [antalgic gait noted] Neurological: Speech clear, no gross sensory deficit Assessment:: Degenerative disc disease of lumbar spine with lumbar radiculopathy symptoms, lumbar postlaminectomy syndrome Plan:: I have discussed with the patient at length that we will reach out to his at home nurse in order so she can reset his PTM device. I have discussed with the patient since his device has been in for approximately 7 years in future he may have to have it replaced. We will follow-up with this at future visits. Patient will return to clinic in 6 months for reevaluation of symptoms and plan of care. Patient has been instructed to contact the clinic with any concerns before the next appointment. Dr. Mooney has reviewed this note and agrees with this plan of care. This note was dictated using voice recognition software and make contain errors or omissions. -- It Is medically necessary for this patient to continue to have their intrathecal pump refilled at regular intervals. This patient had an intrathecal pain pump implanted after meeting criteria of chronic intractable pain for greater than 3 months and failing conservative treatments. Patient has committed and been compliant to the treatment plan and all planned follow up care. Since implantation of the intrathecal pain pump, the patient has had decreased pain and been more functional. Oral medications have been reduced including intake of oral opioids. Patient continues to do well with intrathecal therapy with decrease in pain symptoms and increase in functional status. Stopping intrathecal medications can lead to life threatening withdrawal, seizures, cardiac arrest, severe pain, and possible . Pumps that are not refilled at regular intervals can be damages and cause and need for replacement. We continually titrate dose and concentration to optimize pain relief and function. We are limited in concentration for certain drugs to safely deliver medications through the pump and stay within the recommendations from the Polyanalgesic Consensus Committee Guidelines. Depending on dose and concentration these pumps may need to be refilled sooner than 3 months as we titrate. [facility] Disclaimer: The information contained in this section may have been updated after the patient was seen, as this information can be updated by other users. Medical History EVELYN (obstructive sleep apnea) Chronic back pain Syncope Numbness of upper extremity SOB (shortness of breath) Chest pain HLD (hyperlipidemia) HTN (hypertension) Family History Other No significant family history Social History Smoking Status: Current every day smoker tobacco type: cigarettes packs per day: 1 second hand exposure: No alcohol intake: never current occupational status: other Travel in the last 8 weeks: None household members: spouse housing: house current occupational exposures/hazards: No caffeine: Yes
== END 2023-12-29 23:59 | disposition home or self-care (01) ==
PROVIDERS: PCP Nurse Practitioner Family; Visit Provider Nurse Practitioner Family
DX: M51.16 Intervertebral disc disorders with radiculopathy, lumbar region (principal); M96.1 Postlaminectomy syndrome, not elsewhere classified; Z97.8 Presence of other specified devices
CPT/HCPCS: 99212; G0463

== ENCOUNTER 2024-02-25 15:13 | Outpatient (POV) | payer MEDICARE, SELFPAY ==
[2024-02-25 15:14] VITALS: BP 112/72; PULSE 86; RESP 18; O2SAT 95; BMI 30.9
--- NOTE | 2024-02-25 15:17 | A.OFFVIS_ITS ---
[facility] Disclaimer: The information contained in this section may have been updated after the patient was seen, as this information can be updated by other users. Medical History (Updated 02/25/24 @ 15:21 by Yuni Carrington APRN) EVELYN (obstructive sleep apnea) Chronic back pain Syncope Numbness of upper extremity SOB (shortness of breath) Chest pain HLD (hyperlipidemia) HTN (hypertension) Family History Other No significant family history Social History Smoking Status: Current every day smoker tobacco type: cigarettes packs per day: 1 second hand exposure: No alcohol intake: never current occupational status: other Travel in the last 8 weeks: None household members: spouse housing: house current occupational exposures/hazards: No caffeine: Yes PM Subjective & Objective Subjective Subjective:: Patient is a pleasant 58-year-old male who presents today for follow-up. Today he rates his pain a 5 out of 10. He denies any new trauma or injury. He does state that he still continues to have chronic low back pain. Patient is managed with intrathecal Dilaudid 2 mg/mL. He denies any side effects from this medication. Patient is currently a [facility] home refill client's however due to recent legislation this will change and he will become a in-clinic refill client again. Patient has had his pump for 7 years and it is currently a flowOnix. Patient does state that he is having more issues with the PTC device and it did officially stop working recently. He does state that his home refill nurse was going to see if she could possibly find another device however this company is no longer in business. Patient does state that he knows he will have to have this replaced and is open to going ahead to see about doing this. Patient states that he has had significant improvement with this device. Prior to this he was not able to move around and do much and has had prior back surgery. His Juan Manuel has been reviewed and is appropriate. Review of Systems: General: No recent weight changes, no fever, no sleep disturbances Respiratory: No cough, no shortness of air, no recurring pulmonary infections Cardiovascular/peripheral vascular: No chest pain, no palpitations, no edema, no shortness of breath Gastrointestinal: No new onset incontinence, normal bowel movements reported Genitourinary: No new onset incontinence Musculoskeletal: Low back pain Psychiatric: [Normal mood/affect] Neurological: [Denies weakness in extremities], [denies balance issues] Pain at rest (0-10 scale): 5 Objective Objective:: Physical Exam: General: Alert and oriented x3, no acute distress, pleasant and cooperative Lungs: Respirations even and unlabored, symmetrical chest expansion Eyes: PERRL Musculoskeletal: Flexion and extension of lumbar [spine] somewhat guarded secondary to pain, [antalgic gait noted] Neurological: Speech clear, no gross sensory deficit Has patient had previous pain injection?: No Conservative treatment options previously tried: Home exercise plan Length of treatment: Longer than 6 weeks Meds Home Medications and Allergies Home Medications ?Medication ?Instructions ?Recorded ?Confirmed ?Type losartan 50 mg-hydrochlorothiazide 1 tab PO DAILY blood pressure 02/02/18 02/25/24 History 12.5 mg tablet promethazine 12.5 mg tablet 12.5 mg PO Q6H PRN Nausea 02/02/18 03/04/23 History meclizine 25 mg tablet 25 mg PO DAILY PRN Dizziness 02/04/18 03/04/23 History quetiapine 25 mg tablet 1 mg PO HS sleep 11/05/19 03/04/23 History hydromorphone (PF) 2 mg/mL 0.37 mg IT CONT PRN chronic pain 09/10/21 03/04/23 History injection syringe atorvastatin 20 mg tablet 20 mg PO HS Cholesterol 11/26/21 03/04/23 History trazodone 50 mg tablet 50 mg PO DAILY PRN Insomnia 11/26/21 03/04/23 History alprazolam 0.5 mg tablet,extended 0.5 mg PO HS Anxiety 02/22/22 02/25/24 History release 24 hr hydroxyzine HCl 25 mg tablet 25 mg PO BID Anxiety 02/22/22 03/04/23 History sucralfate 1 gram tablet 1 gm PO TID Stomach 02/22/22 03/04/23 History ergocalciferol (vitamin D2) 1,250 0 mcg PO DIRECTED 02/25/24 02/25/24 History mcg (50,000 unit) capsule potassium chloride 10 mEq 10 meq PO DAILY 02/25/24 02/25/24 History capsule,extended release New Prescriptions to Start Prescriptions: Allergies Allergy/AdvReac Type Severity Reaction Status Date / Time ampicillin [AMPICILLIN] Allergy Unknown I-RASH Verified 03/04/23 11:08 doxycycline [DOXYCYCLINE] Allergy Unknown NA-DIZZINES Verified 03/04/23 11:08 S Iodinated Contrast Media AdvReac Verified 03/04/23 11:08 [Iodinated Contrast Media - Oral and] Assessment and Plan *Assessment and plan (1) Chronic back pain: Status: Chronic Qualifiers: Back pain location: low back pain Back pain laterality: bilateral Sciatica presence: without sciatica Qualified Code(s): M54.50 - Low back pain, unspecified; G89.29 - Other chronic pain Category: Medical Code(s): M54.9 - Dorsalgia, unspecified; G89.29 - Other chronic pain (2) Degenerative disc disease, lumbar: Status: Acute Category: Medical Code(s): M51.36 - Other intervertebral disc degeneration, lumbar region Plan Patient does still have chronic low back pain and a history of failed back surgery with rods placed. Patient has had significant improvement with his current intrathecal pump however it is at its end-of-life date. Patient's PTC device is no longer functioning to allow for additional boluses. I did review over the risk and benefits of intrathecal revision and replacement and he would like to proceed forward with this plan of care. Patient does state that he is very active during the summer months and would like to try and schedule this once the weather cools down possibly around the beginning of May before . Patient is scheduled to have a knee replacement done in July and would like to be completely recovered before having this procedure. We will submit to insurance for revision and replacement of both the intrathecal pump and catheter due to the current flownix catheter being noncompliant with the [employer]comtronic intrathecal pump. Patient will be given a tentative surgery date once we have insurance approval. Patient has tried and failed conservative therapy including oral medication, heat and ice, topicals, continued at home stretching exercise for longer than 6 weeks. We will see the patient back in the clinic at the next intrathecal refill. Patient has been instructed to contact the clinic with any concerns before the next appointment. Dr. Mooney has reviewed this note and agrees with this plan of care. This note was dictated using voice recognition software and make contain errors or omissions. -- It Is medically necessary for this patient to continue to have their intrathecal pump refilled at regular intervals. This patient had an intrathecal pain pump implanted after meeting criteria of chronic intractable pain for greater than 3 months and failing conservative treatments. Patient has committed and been compliant to the treatment plan and all planned follow up care. Since im plantation of the intrathecal pain pump, the patient has had decreased pain and been more functional. Oral medications have been reduced including intake of oral opioids. Patient continues to do well with intrathecal therapy with decrease in pain symptoms and increase in functional status. Stopping intrathecal medications can lead to life threatening withdrawal, seizures, cardiac arrest, severe pain, and possible . Pumps that are not refilled at regular intervals can be damages and cause and need for replacement. We continually titrate dose and concentration to optimize pain relief and function. We are limited in concentration for certain drugs to safely deliver medications through the pump and stay within the recommendations from the Polyanalgesic Consensus Committee Guidelines. Depending on dose and concentration these pumps may need to be refilled sooner than 3 months as we titrate.
== END 2024-02-25 23:59 | disposition home or self-care (01) ==
LOC: SC.PAIN 15:14
PROVIDERS: Visit Provider Nurse Practitioner Family
DX: M54.50 Low back pain, unspecified (principal); G89.29 Other chronic pain; M51.36 Other intervertebral disc degeneration, lumbar region; F17.210 Nicotine dependence, cigarettes, uncomplicated; Z79.899 Other long term (current) drug therapy; Z97.8 Presence of other specified devices
CPT/HCPCS: 99212; G0463

== ENCOUNTER 2024-04-27 13:09 | Day surgery (SDC) | payer MEDICARE, SELFPAY ==
[2024-04-27 13:32] VITALS: BP 125/87; PULSE 83; RESP 16; TEMP 37; O2SAT 95; BMI 30.9
[2024-04-27 13:58] VITALS: BP 123/79; PULSE 80; RESP 18; O2SAT 95
[2024-04-27 14:00] VITALS: BP 123/79; PULSE 72; RESP 18; O2SAT 96
--- NOTE | 2024-04-27 14:09 | EXP.PAIN.PRO ---
Procedure Date: 04/27/24 Time: 13:50 Anesthesiologist:: Scott Gant CRNA Complications:: None Pre-procedure Diagnosis:: Degenerative disc lumbar spine multiple levels. Lumbar radiculopathy. Lumbar postlaminectomy syndrome. Post-procedure Diagnosis:: Same. Indications for Procedure:: Patient is a very pleasant 58-year-old male who comes our clinic today for intrathecal pain pump interrogation, refill and reprogram. Patient currently being managed with hydromorphone 2 mg/mL at 0.4440 mg/day. Patient reporting some low back pain that is intensified with activity. He is requesting an increase in intrathecal pain pump rate. I think this is reasonable. Will increasing by 20%. Patient also reporting his flow Doug pump does not seem to be working as well as it used to in terms of relieving pain. His pump has been for about 7 years. Will get him on the schedule for pump exchange. I discussed with him the new Medtronic pump. He wishes to proceed. Patient is awake alert [place] x 3. No acute distress. Flexion-extension lumbar spine somewhat guarded secondary to pain. Deep tendon reflexes upper and lower extremities normal. Motor strength upper lower extremities normal. There is no gross sensory deficit. Gait is normal. Procedure Details:: Details of the procedure explained to the patient. The patient taken procedure room placed in sitting position. They over the pumps cleansed using chlorhexidine as a cleansing solution. The pump was interrogated. The pump was accessed with ease using a 22-gauge inch and half needle. 4 mL of solution was withdrawn discarded appropriately. The pump was then filled 20 cc of solution containing hydromorphone 2 mg/mL. The pump rate will increase to 0.5330 mg/day. Patient tolerated procedure without difficulty. There are no complications. Plan and Disposition:: Patient was discharged without incident.
[2024-04-27 14:11] VITALS: BP 127/77; PULSE 75; RESP 16; O2SAT 95
== END 2024-04-27 14:11 | disposition home or self-care (01) ==
PROVIDERS: Visit Provider Nurse Anesthetist, Certified Registered
DX: M51.16 Intervertebral disc disorders with radiculopathy, lumbar region (principal); M96.1 Postlaminectomy syndrome, not elsewhere classified
CPT/HCPCS: 62370

== ENCOUNTER 2024-05-25 12:57 | Outpatient (CLI) | payer MEDICARE, SELFPAY ==
--- NOTE | 2024-05-25 13:55 | ECG_ITS ---
APPROVED REPORT Exam: Resting ECG HR:76 bpm ECG Measurements Heart Rate 76 AXES OK 169 P 49 QRSd 113 QRS 40 QT 372 T 60 QTc 402 Conclusion SINUS RHYTHM MODERATE INTRAVENTRICULAR CONDUCTION DELAY [110+ ms QRS DURATION] BORDERLINE ECG UNCONFIRMED REPORT Electronically signed by : Cory Bone MD 05/25/2024 16:59:52
[2024-05-25 14:00] VITALS: BMI 30.6
[2024-05-25 14:16] LABS: Basophils # 0.1 K/mm3 (0-0.2); Basophils % 0.8 % (0.1-2.0); Eosinophils # 0.2 K/mm3 (0.0-0.4); Eosinophils % 2.8 % (0.1-12.0); Hematocrit 50.4 % (42.0-52.0); Hemoglobin 17.8 g/dL (14.1-18.0); Lymphocytes # 1.6 K/mm3 (0.7-4.5); Lymphocytes % 22.2 % (10-50); Mean Corpuscular HGB Conc 35.3 g/dL (31.8-35.4); Mean Corpuscular Hemoglobin 31.1 pg (27.0-31.2); Mean Corpuscular Volume 88.1 fl (80-94); Mean Platelet Volume 8.1 fl (7.4-10.4); Monocytes # 0.4 K/mm3 (0.1-1.0); Monocytes % 5.8 % (1.7-9.3); Neutrophils # 4.9 K/mm3 (1.8-7.8); Neutrophils % 68.5 % (37.0-80.0); Platelet Count 160 K/mm3 (142-424); Red Blood Count 5.72 M/mm3 (4.60-6.20); Red Cell Distribution Width 13.1 % (11.5-17.5); White Blood Count 7.2 K/mm3 (4.8-10.8)
[2024-05-25 14:24] LABS: Anion Gap 13.5 mEq/L (5-15); Blood Urea Nitrogen 12 mg/dl (9-20); Calcium 9.1 mg/dl (8.4-10.2); Carbon Dioxide 28 mmol/L (22.0-30.0); Chloride 101 mmol/L (98-107); Creatinine Clearance Estimated 120 mL/min (50-200); Estimated Glomerular Filt Rate 77 ml/min (>60); GFR (African American) 93 ML/MIN (>60); Glucose 106 mg/dl (74-100); Potassium 3.5 mmoL/L (3.5-5.1); Sodium 139 mmol/L (136-145)
== END 2024-05-25 23:59 | disposition home or self-care (01) ==
LOC: PREOP 12:59
PROVIDERS: Nurse Anesthetist, Certified Registered; PCP Nurse Practitioner Family; Visit Provider Anesthesiology
DX: I45.89 Other specified conduction disorders (principal); M54.9 Dorsalgia, unspecified
CPT/HCPCS: 80048; 85025; 93005

== ENCOUNTER 2024-05-28 11:28 | Day surgery (SDC) | payer MEDICARE, SELFPAY ==
[2024-05-25 13:35] VITALS: BMI 30.6
[2024-05-28 12:12] VITALS: BP 129/85; PULSE 81; RESP 17; TEMP 36.5; O2SAT 96
[2024-05-28] MEDS: 0.9 % SODIUM CHLORIDE 1000ML 1,000 ML 25 ML IV (12:17)
[2024-05-28] MEDS: VANCOMYCIN HCL 2,000 MG in 0.9 % SODIUM CHLORIDE 250 ML 125 MG IV (12:17)
--- NOTE | 2024-05-28 12:24 | EXP.ANES.CKL ---
[facility] Disclaimer: The information contained in this section may have been updated after the patient was seen, as this information can be updated by other users. Medical History Chronic back pain Syncope Numbness of upper extremity SOB (shortness of breath) Chest pain HLD (hyperlipidemia) HTN (hypertension) Surgical History History of transurethral resection of prostate History of back surgery History of knee replacement History of cholecystectomy Family History Other No significant family history Social History Smoking Status: Current every day smoker tobacco type: cigarettes packs per day: 1 second hand exposure: No alcohol intake: never substance use type: denies use current occupational status: disabled and other Travel in the last 8 weeks: None household members: spouse housing: house current occupational exposures/hazards: No caffeine: Yes [facility] Anesthesia Checklist Patient Identification Patient Identification: Arm Band and Verbal (Name & ) Structural Data Admitted From: Home Planned Operative Procedure/s: IPPP Consent for Planned Operative Procedure(s) Verified: Yes Verified Documents: Surgical Consent and History and Physical NPO Status Verified Time NPO: 00:00 Additional verifications Anesthesia Reactions: No Hx Blood Transfusions: Yes Blood Transfusion Reaction: No Airway Assessment Mallampati Score:: Class III C-Spine Mobility Assessed: Yes TMJ Mobility Assessed: Yes Dentition: Good Dentition Neurological Assessment Level of Consciousness: Awake Hx Seizures: No Numbness or tingling in extremities: No Anesthesia Plan Anesthesia Risk discussed: Yes Anesthesia Plan: Verified ASA Class: II Anesthesia Type: MAC
[2024-05-28] MEDS: LIDOCAINE 1% W/EPI 1:100,000 20ML VIAL 40 ML (12:55)
[2024-05-28] MEDS: SODIUM CHLORIDE 0.9% 20ML VIAL 40 ML IV (12:55)
[2024-05-28] MEDS: GENTAMICIN 80 MG/2 ML VIAL (12:57)
[2024-05-28 13:30] VITALS: BP 137/76; PULSE 100; RESP 16; TEMP 37.2; O2SAT 94
[2024-05-28 13:40] VITALS: BP 135/90; PULSE 98; RESP 16; O2SAT 97
[2024-05-28 13:50] VITALS: BP 134/90; PULSE 92; RESP 16; O2SAT 96
[2024-05-28 14:00] VITALS: BP 139/98; PULSE 90; RESP 16; O2SAT 96
--- NOTE | 2024-05-28 15:05 | EXP.OP.NOTE ---
Date of procedure: 05/28/24 Pre-op Diagnosis:: Nonfunctioning intrathecal pain pump system Post-op Diagnosis:: Same Procedure performed:: Replacement pain pump system with new tunneled intrathecal catheter and replacement pain pump generator Surgeon:: Rad Mooney MD [employer] COACH:: Stephan Forbes Anesthesia: MAC Estimated blood loss (mL): 5 Clinical Note:: This patient is a pleasant 58-year-old white male who has a nonfunctioning Flow[employer] pain pump system in place. We will replace his pain pump system today with the Medtronic system. He does have intrathecal hydromorphone 2 mg/mL we will reduce his dose to 0.4 mg/day. Operative findings:: None Operative note:: Informed consent was obtained risk and benefits of the procedure were explained to the patient. The patient was taken the operating room placed prone on the procedure table. He was prepped and draped in sterile fashion. C-arm fluoroscopy was used to view the pain pump generator and catheter. The skin and subcutaneous tissues overlying the pain pump generator were anesthetized using lidocaine. I made incision dissected out the pain pump generator. We disconnected the catheter and tied off with 0 silk ties x 3. C-arm fluoroscopy was then used to view the lumbar spine. The skin and subcutaneous tissues adjacent to the L4-L5 interspace were anesthetized using lidocaine. I made incision dissected down to the lumbar paraspinous fascia. A 17-gauge spinal needle was inserted and advanced into the L4-5 interspace until clear CSF was obtained. After this intrathecal catheter was inserted and advanced very easily to the T9 vertebral body. We were unable to advance any further because of kinking of the catheter. The catheter was found to be in good position. It was posterior and midline. The stylet of the catheter and the needle were withdrawn. The catheter secured to the fascia with an anchor device and 2-0 Prolene. I filled the pump with intrathecal hydromorphone 2 mg/mL. I tunneled catheter from the back to the pump pocket. I attached catheter to the pump. We are able to freely withdraw clear CSF through the sideport. The pump was then placed in the pocket with an antibiotic pouch. Both incisions were closed 2-0 Vicryl followed by 4-0 nylon and adam. The patient tolerated the procedure well with no complications. Pump was interrogated and started at 0.4 mg/day of intrathecal Dilaudid. Patient was discharged home neurologic intact with good relief of pain symptoms. Plan and disposition: Will follow-up with this patient in 1 week for wound check and in 2 to 3 weeks for suture and staple removal. Condition: stable Disposition: PACU Complications:: none
== END 2024-05-28 14:02 | disposition home or self-care (01) ==
LOC: OR 11:29
PROVIDERS: PCP Physician Assistant; Visit Provider Anesthesiology
PROC: (CPT 62350; principal; 2024-05-28 13:15)
DX: T85.695A Other mechanical complication of other nervous system device, implant or graft, initial encounter (principal)
CPT/HCPCS: 62350; 62362; 96375; C1755; C1772; J1580; J2250; J3370; J7030

== ENCOUNTER 2024-06-04 13:06 | Outpatient (POV) | payer MEDICARE, SELFPAY ==
[2024-06-04 15:01] VITALS: BP 137/85; PULSE 85; RESP 16; O2SAT 96; BMI 30.3
--- NOTE | 2024-06-04 15:04 | A.OFFVIS_ITS ---
[facility] Disclaimer: The information contained in this section may have been updated after the patient was seen, as this information can be updated by other users. Medical History Chronic back pain Syncope Numbness of upper extremity SOB (shortness of breath) Chest pain HLD (hyperlipidemia) HTN (hypertension) Surgical History History of transurethral resection of prostate History of back surgery History of knee replacement History of cholecystectomy Family History Other No significant family history Social History (Updated 05/28/24 @ 12:25 by Varghese Caban CRNA) Smoking Status: Current every day smoker tobacco type: cigarettes packs per day: 1 second hand exposure: No alcohol intake: never substance use type: denies use current occupational status: disabled and other Travel in the last 8 weeks: None household members: spouse housing: house current occupational exposures/hazards: No caffeine: Yes PM Subjective & Objective Subjective Subjective:: Patient is a pleasant 58-year-old male who presents today for 1 week postop of intrathecal pump replacement and catheter exchange. Today he rates his pain a 4 out of 10. Patient denies any new trauma or injury. Patient states overall he is done well from this procedure and actually feels like this pump is working much better than his prior 1. He is currently managed with Dilaudid 2 mg/mL and a daily dose of 0.4005 mg/day. He denies any side effects from this medication and states he feels like the dosage does not need additional adjustment today. His Juan Manuel has been reviewed and is appropriate. Review of Systems: General: No recent weight changes, no fever, no sleep disturbances Respiratory: No cough, no shortness of air, no recurring pulmonary infections Cardiovascular/peripheral vascular: No chest pain, no palpitations, no edema, no shortness of breath Gastrointestinal: No new onset incontinence, normal bowel movements reported Genitourinary: No new onset incontinence Musculoskeletal: Low back pain Psychiatric: [Normal mood/affect] Neurological: [Denies weakness in extremities], [denies balance issues] Pain at rest (0-10 scale): 4 Objective Objective:: Physical Exam: General: Alert and oriented x3, no acute distress, pleasant and cooperative Lungs: Respirations even and unlabored, symmetrical chest expansion Eyes: PERRL Musculoskeletal: Flexion and extension of lumbar [spine] somewhat guarded secondary to pain, [antalgic gait noted] Neurological: Speech clear, no gross sensory deficit Skin: Incision sites are clean, dry, well-approximated with no erythema noted and adam and suture intact Has patient had previous pain injection?: No Conservative treatment options previously tried: Home exercise plan Length of treatment: Longer than 6 weeks Meds Home Medications and Allergies Home Medications ?Medication ?Instructions ?Recorded ?Confirmed ?Type losartan 50 mg-hydrochlorothiazide 1 tab PO DAILY blood pressure 02/02/18 05/28/24 History 12.5 mg tablet promethazine 12.5 mg tablet 12.5 mg PO Q6H PRN Nausea 02/02/18 05/28/24 History meclizine 25 mg tablet 25 mg PO DAILY PRN Dizziness 02/04/18 05/28/24 History hydromorphone (PF) 2 mg/mL 0.37 mg IT CONT PRN chronic pain 09/10/21 05/28/24 History injection syringe alprazolam 0.5 mg tablet,extended 0.5 mg PO HS Anxiety 02/22/22 05/28/24 History release 24 hr ergocalciferol (vitamin D2) 1,250 0 mcg PO DIRECTED 02/25/24 05/28/24 History mcg (50,000 unit) capsule potassium chloride 10 mEq 10 meq PO DAILY 02/25/24 05/28/24 History capsule,extended release famotidine 20 mg tablet 20 mg PO DAILY PRN reflux 05/25/24 05/28/24 History tadalafil 10 mg tablet 10 mg PO DAILY 05/25/24 05/28/24 History testosterone cypionate 200 mg/mL 200 mg IM WEEKLY 05/25/24 05/28/24 History intramuscular oil sulfamethoxazole 800 1 tab PO BID 7 days #14 tabs 05/28/24 Rx mg-trimethoprim 160 mg tablet (Bactrim DS) New Prescriptions to Start Prescriptions: Allergies Allergy/AdvReac Type Severity Reaction Status Date / Time ampicillin (AMPICILLIN) Allergy Unknown I-RASH Verified 05/28/24 12:10 doxycycline (DOXYCYCLINE) Allergy Unknown NA-DIZZINES Verified 05/28/24 12:10 S Iodinated Contrast Media AdvReac Nausea Verified 05/28/24 12:10 (Iodinated Contrast Media - Oral and) Assessment and Plan *Assessment and plan (1) Degenerative disc disease, lumbar: Status: Acute Category: Medical Code(s): M51.36 - Other intervertebral disc degeneration, lumbar region Plan Patient's incisions are clean, dry, well-approximated with no erythema noted and sutures and adam are intact. I did discuss with the patient that he is to continue his postop restrictions the full 6 weeks with no submerging in water until they are fully healed, minimal bending, twisting or lifting and to continue to use his abdominal binder to prevent seroma formation. Patient was counseled that we will plan on seeing him back in 2 weeks with the plan to take every other staple/suture out and as long as everything looks good then we will take all of it out and applied Steri-Strips and skin glue. Patient acknowledges understanding agrees with this plan of care. Patient will return to clinic in 2 weeks for reevaluation of symptoms and plan of care. We will see the patient back in the clinic at the next intrathecal refill. Patient has been instructed to contact the clinic with any concerns before the next appointment. Dr. Mooney has reviewed this note and agrees with this plan of care. This note was dictated using voice recognition software and make contain errors or omissions. -- It Is medically necessary for this patient to continue to have their intrathecal pump refilled at regular intervals. This patient had an intrathecal pain pump implanted after meeting criteria of chronic intractable pain for greater than 3 months and failing conservative treatments. Patient has committed and been compliant to the treatment plan and all planned follow up care. Since implantation of the intrathecal pain pump, the patient has had decreased pain and been more functional. Oral medications have been reduced including intake of oral opioids. Patient continues to do well with intrathecal therapy with decrease in pain symptoms and increase in functional status. Stopping intrathecal medications can lead to life threatening withdrawal, seizures, c ardiac arrest, severe pain, and possible . Pumps that are not refilled at regular intervals can be damages and cause and need for replacement. We continually titrate dose and concentration to optimize pain relief and function. We are limited in concentration for certain drugs to safely deliver medications through the pump and stay within the recommendations from the Polyanalgesic Consensus Committee Guidelines. Depending on dose and concentration these pumps may need to be refilled sooner than 3 months as we titrate.
== END 2024-06-04 23:59 | disposition home or self-care (01) ==
LOC: SC.PAIN 13:07
PROVIDERS: Visit Provider Nurse Practitioner Family
DX: M51.369 Other intervertebral disc degeneration, lumbar region without mention of lumbar back pain or lower extremity pain (principal); F17.210 Nicotine dependence, cigarettes, uncomplicated
CPT/HCPCS: 99212; G0463

== ENCOUNTER 2024-06-17 15:12 | Outpatient (POV) | payer MEDICARE, SELFPAY ==
[2024-06-17 15:30] VITALS: BP 131/78; PULSE 81; RESP 16; O2SAT 98; BMI 29.1
--- NOTE | 2024-06-17 15:47 | A.OFFVIS_ITS ---
[facility] Disclaimer: The information contained in this section may have been updated after the patient was seen, as this information can be updated by other users. Medical History Chronic back pain Syncope Numbness of upper extremity SOB (shortness of breath) Chest pain HLD (hyperlipidemia) HTN (hypertension) Surgical History History of transurethral resection of prostate History of back surgery History of knee replacement History of cholecystectomy Family History Other No significant family history Social History (Updated 05/28/24 @ 12:25 by Varghese Caban CRNA) Smoking Status: Current every day smoker tobacco type: cigarettes packs per day: 1 second hand exposure: No alcohol intake: never substance use type: denies use current occupational status: other Travel in the last 8 weeks: None household members: spouse housing: house current occupational exposures/hazards: No caffeine: Yes PM Subjective & Objective Subjective Subjective:: Patient is a pleasant 58-year-old male who presents today for suture and staple removal. Today he rates his pain a 4 out of 10. Patient denies any new trauma or injury. He does state that this pump is working great and he has noticed a huge difference from his old pump to the current 1. Patient is currently managed with Dilaudid 2 mg/mL with a daily dose of 0.4005 mg/day. He denies any side effects from this medication. He states that the dosage is working well. His Juan Manuel has been reviewed and is appropriate. Review of Systems: General: No recent weight changes, no fever, no sleep disturbances Respiratory: No cough, no shortness of air, no recurring pulmonary infections Cardiovascular/peripheral vascular: No chest pain, no palpitations, no edema, no shortness of breath Gastrointestinal: No new onset incontinence, normal bowel movements reported Genitourinary: No new onset incontinence Musculoskeletal: Low back pain Psychiatric: [Normal mood/affect] Neurological: [Denies weakness in extremities], [denies balance issues] Pain at rest (0-10 scale): 4 Objective Objective:: Physical Exam: General: Alert and oriented x3, no acute distress, pleasant and cooperative Lungs: Respirations even and unlabored, symmetrical chest expansion Eyes: PERRL Musculoskeletal: Flexion and extension of lumbar [spine] somewhat guarded secondary to pain, [antalgic gait noted] Neurological: Speech clear, no gross sensory deficit Skin: Incision sites are clean, dry, well-approximated with minimal erythema noted and adam intact Has patient had previous pain injection?: No Conservative treatment options previously tried: Home exercise plan Length of treatment: Longer than 12 weeks Meds Home Medications and Allergies Home Medications ?Medication ?Instructions ?Recorded ?Confirmed ?Type losartan 50 mg-hydrochlorothiazide 1 tab PO DAILY blood pressure 02/02/18 06/04/24 History 12.5 mg tablet promethazine 12.5 mg tablet 12.5 mg PO Q6H PRN Nausea 02/02/18 06/04/24 History meclizine 25 mg tablet 25 mg PO DAILY PRN Dizziness 02/04/18 06/04/24 History hydromorphone (PF) 2 mg/mL 0.37 mg IT CONT PRN chronic pain 09/10/21 06/04/24 History injection syringe alprazolam 0.5 mg tablet,extended 0.5 mg PO HS Anxiety 02/22/22 06/04/24 History release 24 hr ergocalciferol (vitamin D2) 1,250 0 mcg PO DIRECTED 02/25/24 06/04/24 History mcg (50,000 unit) capsule potassium chloride 10 mEq 10 meq PO DAILY 02/25/24 06/04/24 History capsule,extended release famotidine 20 mg tablet 20 mg PO DAILY PRN reflux 05/25/24 06/04/24 History tadalafil 10 mg tablet 10 mg PO DAILY 05/25/24 06/04/24 History testosterone cypionate 200 mg/mL 200 mg IM WEEKLY 05/25/24 06/04/24 History intramuscular oil sulfamethoxazole 800 1 tab PO BID 7 days #14 tabs 05/28/24 06/04/24 Rx mg-trimethoprim 160 mg tablet (Bactrim DS) New Prescriptions to Start Prescriptions: Allergies Allergy/AdvReac Type Severity Reaction Status Date / Time ampicillin (AMPICILLIN) Allergy Unknown I-RASH Verified 05/28/24 12:10 doxycycline (DOXYCYCLINE) Allergy Unknown NA-DIZZINES Verified 05/28/24 12:10 S Iodinated Contrast Media AdvReac Nausea Verified 05/28/24 12:10 (Iodinated Contrast Media - Oral and) Assessment and Plan *Assessment and plan (1) Degenerative disc disease, lumbar: Status: Acute Category: Medical Code(s): M51.36 - Other intervertebral disc degeneration, lumbar region Plan Patient's incisions are looking great and was able to have all of his adam removed with skin glue and Steri-Strips applied. Patient was counseled to continue his postop restrictions the full 6 weeks including no submerging in water until his incisions are fully healed, to continue to use his abdominal binder to prevent seroma formation and to be mindful of bending, twisting or lifting. Patient agrees with this plan of care. Patient is scheduled for his next intrathecal refill in July and will also keep that appointment to follow-up on his postop restrictions. Patient agrees with this plan of care. Patient has been instructed to contact the clinic with any concerns before the next appointment. Dr. Mooney has reviewed this note and agrees with this plan of care. This note was dictated using voice recognition software and make contain errors or omissions. All injections are used with Lidocaine or Bupivacaine and Depo Medrol.
== END 2024-06-17 23:59 | disposition home or self-care (01) ==
LOC: SC.PAIN 15:15
PROVIDERS: PCP Family Medicine; Visit Provider Nurse Practitioner Family
DX: M51.369 Other intervertebral disc degeneration, lumbar region without mention of lumbar back pain or lower extremity pain (principal); F17.210 Nicotine dependence, cigarettes, uncomplicated
CPT/HCPCS: 99212; G0463

== ENCOUNTER 2024-08-03 14:17 | Day surgery (SDC) | payer MEDICARE, SELFPAY ==
[2024-08-03 14:33] VITALS: BP 146/91; PULSE 84; RESP 16; O2SAT 98; BMI 28.3
[2024-08-03 15:04] VITALS: BP 145/92; PULSE 88; RESP 16; O2SAT 97
[2024-08-03 15:10] VITALS: BP 145/92; PULSE 88; RESP 16; O2SAT 97
--- NOTE | 2024-08-03 15:11 | P.PCN_ITS ---
Procedure Date: 08/03/24 Time: 15:11 Anesthesiologist:: Yuni Carrington APRN Complications:: None Pre-procedure Diagnosis:: Degenerative disc disease of lumbar spine with lumbar radiculopathy symptoms Post-procedure Diagnosis:: Same Indications for Procedure:: Patient is a pleasant 58-year-old male who presents today for intrathecal refill and reprogram. Today he rates his pain a 5 out of 10. He denies any new trauma or injury. Patient has had his right knee replaced and does state overall he is doing well. He states he did have an episode where he had some urinary retention however that has resolved. Patient is currently managed with Dilaudid 2 mg/mL with a daily dose of 0.4005 mg/day. He denies any side effects from this medication. His Juan Manuel has been reviewed and is appropriate. Physical Exam: General: Alert and oriented x3, no acute distress, pleasant and cooperative Lungs: Respirations even and unlabored, symmetrical chest expansion Eyes: PERRL Musculoskeletal: Flexion and extension of lumbar [spine] somewhat guarded secondary to pain, [antalgic gait noted] Neurological: Speech clear, no gross sensory deficit Procedure Details:: Informed consent was obtained and the risk and benefits of the procedure were explained to the patient. The patient had noninvasive monitoring placed including noninvasive blood pressure cuff and pulse oximeter. Patient's pump was interrogated. The area over the pump was cleansed with chlorhexidine as a cleansing solution. In sterile fashion the pump was accessed with a 22-gauge needle. Approximately 5.8 mls of the pump solution was removed and discarded appropriately. The pump was then refilled with 20 mL's of Dilaudid 2 mg/mL. The needle was withdrawn and a bandage was placed over the puncture site. The infusion rate was reprogrammed and Dilaudid 0.4005 mg/day. The patient tolerated well with no complication. Plan and Disposition:: Patient tolerated his procedure well with no complications and was discharged ne urologically intact. Patient will return to clinic on or before his next intrathecal refill date. We will see the patient back in the clinic at the next intrathecal refill. Patient has been instructed to contact the clinic with any concerns before the next appointment. Dr. Mooney has reviewed this note and agrees with this plan of care. This note was dictated using voice recognition software and make contain errors or omissions. -- It Is medically necessary for this patient to continue to have their intrathecal pump refilled at regular intervals. This patient had an intrathecal pain pump i mplanted after meeting criteria of chronic intractable pain for greater than 3 months and failing conservative treatments. Patient has committed and been compliant to the treatment plan and all planned follow up care. Since implantation of the intrathecal pain pump, the patient has had decreased pain and been more functional. Oral medications have been reduced including intake of oral opioids. Patient continues to do well with intrathecal therapy with decrease in pain symptoms and increase in functional status. Stopping intrathecal medications can lead to life threatening withdrawal, seizures, cardiac arrest, severe pain, and possible . Pumps that are not refilled at regular intervals can be damages and cause and need for replacement. We continually titrate dose and concentration to optimize pain relief and function. We are limited in concentration for certain drugs to safely deliver medications through the pump and stay within the recommendations from the Polyanalgesic Consensus Committee Guidelines. Depending on dose and concentration these pumps may need to be refilled sooner than 3 months as we titrate. A UDS is needed to verify patient's compliance with our office pain contract. This is ordered based off specific treatments related to chronic pain with the potential to abuse certain medications.
[2024-08-03 15:16] VITALS: BP 144/82; PULSE 86; RESP 16; O2SAT 95
== END 2024-08-03 15:16 | disposition home or self-care (01) ==
LOC: SC.PAINP 15:13 → SC.PAIN 16:02
PROVIDERS: PCP Nurse Practitioner Family; Visit Provider Nurse Practitioner Family
DX: M51.16 Intervertebral disc disorders with radiculopathy, lumbar region (principal)
CPT/HCPCS: 62370

== ENCOUNTER 2024-09-24 11:51 | Day surgery (SDC) | payer MEDICARE, SELFPAY ==
[2024-09-24 12:10] VITALS: BP 147/87; PULSE 94; RESP 16; O2SAT 92; BMI 28.3
[2024-09-24 12:35] VITALS: BP 142/85; PULSE 91; RESP 18; O2SAT 94
[2024-09-24 12:36] VITALS: BP 142/85; PULSE 91; RESP 18; O2SAT 94
[2024-09-24 12:50] VITALS: BP 146/86; PULSE 94; RESP 16; O2SAT 91
--- NOTE | 2024-09-24 12:50 | P.PCN_ITS ---
Procedure Date: 09/24/24 Time: 12:48 Anesthesiologist:: Yuni Carrington APRN Complications:: None Pre-procedure Diagnosis:: Degenerative disc disease of lumbar spine with lumbar radiculopathy symptoms Post-procedure Diagnosis:: Same Indications for Procedure:: Patient is a pleasant 58-year-old male who presents today for intrathecal refill and reprogram. Today he rates his pain a 0 3 out of 10. He states overall he is doing wonderful and really does feel like this pump is done all the d ifference. Patient is currently managed with Dilaudid 2 mg/mL with a daily dose of 0.4005. He denies any side effects. His Juan Manuel has been reviewed and is appropriate. Physical Exam: General: Alert and oriented x3, no acute distress, pleasant and cooperative Lungs: Respirations even and unlabored, symmetrical chest expansion Eyes: PERRL Musculoskeletal: Flexion and extension of lumbar [spine] somewhat guarded secondary to pain, [antalgic gait noted] Neurological: Speech clear, no gross sensory deficit Procedure Details:: Informed consent was obtained and the risk and benefits of the procedure were explained to the patient. The patient had noninvasive monitoring placed including noninvasive blood pressure cuff and pulse oximeter. Patient's pump was interrogated. The area over the pump was cleansed with chlorhexidine as a cleansing solution. In sterile fashion the pump was accessed with a 22-gauge needle. Approximately 9.5 mls of the pump solution was removed and discarded appropriately. The pump was then refilled with 20 mL's of Dilaudid 2 mg/mL. The needle was withdrawn and a bandage was placed over the puncture site. The infusion rate was reprogrammed and continued at its current dosage. The patient tolerated well with no complication. Plan and Disposition:: Patient tolerated the procedure well with no complications and was discharged neurologically intact. Patient will return to clinic on or before their next intrathecal refill date. We will see the patient back in the clinic at the next intrathecal refill. Patient has been instructed to contact the clinic with any concerns before the next appointment. Dr. Mooney has reviewed this note and agrees with this plan of care. This note was dictated using voice recognition software and make contain errors or omissions. -- It Is medically necessary for this patient to continue to have their intrathecal pump refilled at regular intervals. This patient had an intrathecal pain pump implanted after meeting criteria of chronic intractable pain for greater than 3 months and failing conservative treatments. Patient has committed and been compliant to the treatment plan and all planned follow up care. Since implantation of the intrathecal pain pump, the patient has had decreased pain and been more functional. Oral medications have been reduced including intake of oral opioids. Patient continues to do well with intrathecal therapy with decrease in pain symptoms and increase in functional status. Stopping intrathecal medications can lead to life threatening withdrawal, seizures, cardiac arrest, severe pain, and possible . Pumps that are not refilled at regular intervals can be damages and cause and need for replacement. We continually titrate dose and concentration to optimize pain relief and function. We are limited in concentration for certain drugs to safely deliver medications through the pump and stay within the recommendations from the Polyanalgesic Consensus Committee Guidelines. Depending on dose and concentration these pumps may need to be refilled sooner than 3 months as we titrate. A UDS is needed to verify patient's compliance with our office pain contract. This is ordered based off specific treatments related to chronic pain with the potential to abuse certain medications.
== END 2024-09-24 12:50 | disposition home or self-care (01) ==
PROVIDERS: PCP Nurse Practitioner Family; Visit Provider Nurse Practitioner Family
DX: M51.16 Intervertebral disc disorders with radiculopathy, lumbar region (principal)
CPT/HCPCS: 62370

== ENCOUNTER 2024-11-19 10:49 | Day surgery (SDC) | payer MEDICARE, SELFPAY ==
[2024-11-19 11:05] VITALS: BP 137/80; PULSE 82; RESP 16; TEMP 36.6; O2SAT 96; BMI 29.9
[2024-11-19 11:06] VITALS: BP 151/85; PULSE 82; RESP 18; O2SAT 95
--- NOTE | 2024-11-19 11:29 | EXP.HP ---
History of Present Illness *Admission Date: 11/19/24 *Reason for visit:: Intrathecal refill; DDD *History of present illness: DDD PFSH PFS Disclaimer: The information contained in this section may have been updated after the patient was seen, as this information can be updated by other users. Medical History Chronic back pain Syncope Numbness of upper extremity SOB (shortness of breath) Chest pain HLD (hyperlipidemia) HTN (hypertension) Surgical History History of transurethral resection of prostate History of back surgery History of knee replacement History of cholecystectomy Family History Other No significant family history Social History Smoking Status: Current every day smoker tobacco type: cigarettes packs per day: 1 second hand exposure: No alcohol intake: never substance use type: denies use current occupational status: other Travel in the last 8 weeks?: None household members: spouse housing: house current occupational exposures/hazards: No caffeine: Yes Other Medical History Have you received the Flu Vaccine for this season: No Have you received the Pneumonia Vaccine: No Review of Systems Review of Systems Review of systems:: pertinent systems reviewed and negative unless documented below Review of systems (narrative): Review of Systems: General: No recent weight changes, no fever, no sleep disturbances Respiratory: No cough, no shortness of air, no recurring pulmonary infections Cardiovascular/peripheral vascular: No chest pain, no palpitations, no edema, no shortness of breath Gastrointestinal: No new onset incontinence, normal bowel movements reported Genitourinary: No new onset incontinence Musculoskeletal: Chronic back pain Psychiatric: [Normal mood/affect] Neurological: [Denies weakness in extremities], [denies balance issues] Meds Home Medications and Allergies Home Medications ?Medication ?Instructions ?Recorded ?Confirmed ?Type losartan 50 mg-hydrochlorothiazide 1 tab PO DAILY blood pressure 02/02/18 11/19/24 History 12.5 mg tablet promethazine 12.5 mg tablet 12.5 mg PO Q6H PRN Nausea 02/02/18 11/19/24 History meclizine 25 mg tablet 25 mg PO DAILY PRN Dizziness 02/04/18 11/19/24 History hydromorphone (PF) 2 mg/mL 0.37 mg IT CONT PRN chronic pain 09/10/21 11/19/24 History injection syringe alprazolam 0.5 mg tablet,extended 0.5 mg PO HS Anxiety 02/22/22 11/19/24 History release 24 hr ergocalciferol (vitamin D2) 1,250 0 mcg PO DIRECTED 02/25/24 11/19/24 History mcg (50,000 unit) capsule potassium chloride 10 mEq 10 meq PO DAILY 02/25/24 11/19/24 History capsule,extended release famotidine 20 mg tablet 20 mg PO DAILY PRN reflux 05/25/24 11/19/24 History tadalafil 10 mg tablet 10 mg PO DAILY 05/25/24 11/19/24 History testosterone cypionate 200 mg/mL 200 mg IM WEEKLY 05/25/24 11/19/24 History intramuscular oil duloxetine 30 mg capsule,delayed 30 mg PO DAILY 06/17/24 11/19/24 History release sprinkle New Prescriptions to Start Prescriptions: Allergies Allergy/AdvReac Type Severity Reaction Status Date / Time ampicillin (AMPICILLIN) Allergy Unknown I-RASH Verified 05/28/24 12:10 doxycycline (DOXYCYCLINE) Allergy Unknown NA-DIZZINES Verified 05/28/24 12:10 S Iodinated Contrast Media AdvReac Nausea Verified 05/28/24 12:10 (Iodinated Contrast Media - Oral and) Exam Data for Last 24 hours Vital signs and Labs for Last 24 Hours: Temp Pulse Resp BP Pulse Ox O2 Del Method 97.9 F 82 18 151/85 H 95 Room Air 11/19/24 11:05 11/19/24 11:06 11/19/24 11:06 11/19/24 11:06 11/19/24 11:06 11/19/24 11:06 I & O for Last 24 hours: Intake & Output 11/16/24 11/17/24 11/18/24 11/19/24 23:59 23:59 23:59 23:59 Weight 233 lb Constitutional Constitutional: no acute distress *Routine HEENT Exam Head: Present normocephalic and atraumatic Eye: Present PERRL ENT: Present mucous membranes moist *Routine Neck Exam Neck: Present supple *Routine Respiratory Exam Respiratory: Present CTA bilaterally *Routine Cardiovascular Exam Cardiovascular: Present RRR *Routine Abdominal Exam Abdominal: Present soft *Routine Rectal Exam Rectal:: deferred *Routine Genitalia Exam Genitalia:: normal male Routine Back/Spine/Pelvis Exam Back/Spine: Present pain with flexion *Routine Neurological Exam Neurological: Present alert and oriented X3 Routine Psychiatric Exam Psychiatric: Present normal affect and normal thought process Assessment and Plan *Assessment and plan (1) Degenerative disc disease, lumbar: Status: Acute Category: Medical Code(s): M51.369 - Other intervertebral disc degeneration, lumbar region without mention of lumbar back pain or lower extremity pain Plan Patient has been instructed to contact the clinic with any concerns before the next appointment. Dr. Mooney has reviewed this note and agrees with this plan of care. This note was dictated using voice recognition software and make contain errors or omissions. All injections are used with Lidocaine, Bupivacaine and dexamethasone. Occasionally urine drug screen is needed to verify patient's compliance with our office pain contract. This is ordered based off specific treatments related to chronic pain with the potential to abuse certain medications.
--- NOTE | 2024-11-19 11:30 | P.PCN_ITS ---
Procedure Date: 11/19/24 Time: 11:30 Anesthesiologist:: Yuni Carrington APRN Complications:: None Pre-procedure Diagnosis:: Degenerative disc disease of lumbar spine with lumbar radiculopathy symptoms Post-procedure Diagnosis:: Same Indications for Procedure:: Patient is a pleasant 59-year-old male who presents today for intrathecal refill and reprogram. Today he rates his pain at a 4 out of 10. He denies any new trauma or injury. Patient does state overall he is doing really well he rates his intrathecal pump medication. He denies any side effects. Patient is currently managed with Dilaudid 2 mg/mL with a daily dose of 0.4005 mg/day. He denies any side effects. His Juan Manuel has been reviewed and is appropriate. Physical Exam: General: Alert and oriented x3, no acute distress, pleasant and cooperative Lungs: Respirations even and unlabored, symmetrical chest expansion Eyes: PERRL Musculoskeletal: Flexion and extension of lumbar [spine] somewhat guarded secondary to pain, [antalgic gait noted] Neurological: Speech clear, no gross sensory deficit Procedure Details:: Informed consent was obtained and the risk and benefits of the procedure were explained to the patient. The patient had noninvasive monitoring placed inclu ding noninvasive blood pressure cuff and pulse oximeter. Patient's pump was interrogated. The area over the pump was cleansed with chlorhexidine as a cleansing solution.. In sterile fashion the pump was accessed with a 22-gauge needle. Approximately 8 mls of the pump solution was removed and discarded appropriately. The pump was then refilled with 20 mL's of Dilaudid 2 mg/mL. The needle was withdrawn and a bandage was placed over the puncture site. The infusion rate was reprogrammed and continued at its current dosage. The patient tolerated well with no complication. Plan and Disposition:: Patient tolerated the procedure well with no complications and was discharged neurologically intact. Patient will return to clinic on or before their next intrathecal refill date. We will see the patient back in the clinic at the next intrathecal refill. Patient has been instructed to contact the clinic with any concerns before the next appointment. Dr. Mooney has reviewed this note and agrees with this plan of care. This note was dictated using voice recognition software and make contain errors or omissions. -- It Is medically necessary for this patient to continue to have their intrathecal pump refilled at regular intervals. This patient had an intrathecal pain pump implanted after meeting criteria of chronic intractable pain for greater than 3 months and failing conservative treatments. Patient has committed and been compliant to the treatment plan and all planned follow up care. Since implantation of the intrathecal pain pump, the patient has had decreased pain and been more functional. Oral medications have been reduced including intake of oral opioids. Patient continues to do well with intrathecal therapy with decrease in pain symptoms and increase in functional status. Stopping intrathecal medications can lead to life threatening withdrawal, seizures, cardiac arrest, severe pain, and possible . Pumps that are not refilled at regular intervals can be damages and cause and need for replacement. We continually titrate dose and concentration to optimize pain relief and function. We are limited in concentration for certain drugs to safely deliver medications through the pump and stay within the recommendations from the Polyanalgesic Consensus Committee Guidelines. Depending on dose and concentration these pumps may need to be refilled sooner than 3 months as we titrate. A UDS is needed to verify patient's compliance with our office pain contract. This is ordered based off specific treatments related to chronic pain with the potential to abuse certain medications.
[2024-11-19 11:35] VITALS: BP 147/91; PULSE 79; RESP 16; O2SAT 96
== END 2024-11-19 11:35 | disposition home or self-care (01) ==
PROVIDERS: PCP Nurse Practitioner Family; Visit Provider Nurse Practitioner Family
DX: M51.16 Intervertebral disc disorders with radiculopathy, lumbar region (principal)
CPT/HCPCS: 62370

== ENCOUNTER 2025-01-25 13:33 | Day surgery (SDC) | payer MEDICARE, SELFPAY ==
[2025-01-25 13:49] VITALS: BP 154/86; PULSE 97; RESP 18; O2SAT 95; BMI 30.8
[2025-01-25 14:12] VITALS: BP 148/86; PULSE 89; RESP 18; O2SAT 96
[2025-01-25 14:15] VITALS: BP 135/77; PULSE 92; RESP 18; O2SAT 93
--- NOTE | 2025-01-25 14:20 | EXP.PAIN.PRO ---
Procedure Date: 01/25/25 Time: 14:00 Anesthesiologist:: Scott Gant CRNA Complications:: None Pre-procedure Diagnosis:: Degenerative disc lumbar spine multilevels. Lumbar radiculopathy. Lumbar postlaminectomy syndrome. Lumbar spondylosis. Multilevel lumbar facet arthropathy. Post-procedure Diagnosis:: Same. Indications for Procedure:: Patient is a very pleasant 59-year-old male who comes our clinic today for intrathecal pain pump interrogation and refill. Patient currently being managed with hydromorphone 2 mg/mL at a rate of 0.4005 mg/day. Patient doing very well with his current settings. He is not reporting any side effects or complications. He is not requesting any changes. Patient is awake alert [place] x 3. No acute distress. Flexion-extension lumbar spine somewhat guarded secondary to pain. Deep tendon reflexes upper lower extremities normal. Motor strength upper and lower extremities normal. There is no gross sensory deficit. Gait is normal. Procedure Details:: Details of the procedure explained to the patient. The patient taken procedure and placed in the sitting position. The over the pumps cleansed using chlorhexidine as a cleansing solution. The pump was interrogated. The pump was accessed with ease using a 22-gauge inch half needle. 5 mL of solution was withdrawn. The pump was then filled with 20 cc of solution containing hydromorphone 2 mg/mL. No change in rate. Patient tolerated procedure without difficulty. There were no complications. Plan and Disposition:: Patient was discharged without incident.
== END 2025-01-25 14:12 | disposition home or self-care (01) ==
PROVIDERS: PCP Nurse Practitioner Family; Visit Provider Nurse Anesthetist, Certified Registered
DX: Z45.1 Encounter for adjustment and management of infusion pump (principal); M47.26 Other spondylosis with radiculopathy, lumbar region; M51.16 Intervertebral disc disorders with radiculopathy, lumbar region; E78.5 Hyperlipidemia, unspecified; I10 Essential (primary) hypertension; F17.210 Nicotine dependence, cigarettes, uncomplicated; M96.1 Postlaminectomy syndrome, not elsewhere classified; Z79.899 Other long term (current) drug therapy; Z79.890 Hormone replacement therapy; Z88.0 Allergy status to penicillin; Z88.1 Allergy status to other antibiotic agents; Z91.041 Radiographic dye allergy status
CPT/HCPCS: 62370

== ENCOUNTER 2025-04-14 14:55 | Outpatient (CLI) | payer MEDICARE, SELFPAY ==
--- OUTSIDE RECORDS SUMMARY | 2025-04-05 13:00 | XMS_ITS | Encounter Summary ---
Author Organization [place] [address] Care Team Providers Care Hvac Maintenance Technician Name Role Phone Hui Nugent APRN Primary Care Provider [phone] Reason for Visit * Reason Comments Medication Refill 3 month med check up Encounter Details Date Type Department Care Team (Late st Contact Info) Description 04/05/2025 1:00 PM EDT Telemedicine [facility] [address] [place] [id number] Hui Nugent, SPA DIRECTOR [address] [place] [address] Chronic anxiety (Primary Dx); Low testosterone Social History Tobacco Use Types Packs/Day Years Used Date Smoking Tobacco: Never Smokeless Tobacco: Never Alcohol Use Standard Drinks/Week Comments Yes 0 (1 standard drink = 0.6 oz pur e alcohol) social PHQ-2 Answer Date Recorded PHQ-2 Total Score 0 01/10/2025 Sexually Active Control Partners Comments Yes Sex and Gender Information Value Date Recorded Sex Assigned at Not on file Legal Sex Male 12:18 AM EDT Gender Identity Not on file Sexual Orientation Not on file documented as of this encounter Ordered Prescriptions Prescription Sig Dispense Quantity Refills Last Filled Start Date End Date testosterone cypionate (DEPOTESTOTERONE CYPIONATE) 200 mg/mL IM OilIndications:Low testosterone Inject 1 mL into the muscle every 14 days. 2 mL 04/05/2025 ALPRAZolam (XANAX) 1 mg Oral TabletIndications: anxiety Take 1 Tablet by mouth 2 times daily as needed. Indications: anxious 60 Tablet 2 04/05/2025 documented in this encounter Progress Notes * Hui Nugent APRN - 04/05/2025 1:00 PM EDTAssociated Problem(s): Chronic anxiety Goal: achieve mental health wellness where ADLs, family, social and work relationships are optimal Depression Screen Score: Addressed: - Current stressors contributing to sx explored and discussed Compliance: - compliant with medications - met goals outlined in previous treatment plan Advice: - remain compliant with follow up and medications - advised to contact this office if increased depressive or anxiety symptoms develop - avoid alcohol and drug use Medication Management: - a reassessment of the patients current diagnoses, medications, labs, potential SE, appropriate dose and risks assessed and discussed today - responding as expected State Prescription Drug Monitoring Program (i.e TASHA, INSPECT, OARS): - report reviewed today Urine Drug Screen: - urine drug screen completed in the last year Controlled Substatnce Contract: - completed and on file Orders: ALPRAZolam (XANAX) 1 mg Oral Tablet; Take 1 Tablet by mouth 2 times daily as needed. Indications: anxious * Hui Nugent APRN - 04/05/2025 1:00 PM EDTAssociated Problem(s): Low testosterone Orders: testosterone cypionate (DEPOTESTOTERONE CYPIONATE) 200 mg/mL IM Oil; Inject 1 mL into the muscle every 14 days. * Hui Nugent APRN - 04/05/2025 1:00 PM EDT Assessment & Plan Chronic anxiety Goal: achieve mental health wellness where ADLs, family, social and work relationships are optimal Depression Screen Score: Addressed: - Current stressors contributing to sx explored and discussed Compliance: - compliant with medications - met goals outlined in previous treatment plan Advice: - remain compliant with follow up and medications - advised to contact this office if increased depressive or anxiety symptoms develop - avoid alcohol and drug use Medication Management: - a reassessment of the patients current diagnoses, medications, labs, potential SE, appropriate dose and risks assessed and discussed today - responding as expected State Prescription Drug Monitoring Program (i.e TASHA, INSPECT, OARS): - report reviewed today Urine Drug Screen: - urine drug screen completed in the last year Controlled Substatnce Contract: - completed and on file Orders: ALPRAZolam (XANAX) 1 mg Oral Tablet; Take 1 Tablet by mouth 2 times daily as needed. Indications: anxious Low testosterone Orders: testosterone cypionate (DEPOTESTOTERONE CYPIONATE) 200 mg/mL IM Oil; Inject 1 mL into the muscle every 14 days. Progress Note: There were no vitals filed for this visit. There is no height or weight on file to calculate BMI. SUBJECTIVE: Chief Complaint Patient presents with Medication Refill 3 month med check up HPI: MyChart video visit for 3 month med management visit without acute complaints. Review of Systems Constitutional: Negative. HENT: Negative. Eyes: Negative for visual disturbance. Respiratory: Negative. Cardiovascular: Negative. Gastrointestinal: Negative. Skin: Negative. Neurological: Negative for weakness and headaches. Psychiatric/Behavioral: Negative for sleep disturbance and suicidal ideas. OBJECTIVE: Physical Exam Constitutional: General: He is not in acute distress. Appearance: Normal appearance. HENT: Mouth/Throat: Mouth: Mucous membranes are moist. Eyes: Conjunctiva/sclera: Conjunctivae normal. Pulmonary: Effort: Pulmonary effort is normal. Neurological: Mental Status: He is alert and oriented to person, place, and time. Psychiatric: Mood and Affect: Mood normal. Thought Content: Thought content normal. documented in this encounter Plan of Treatment Not on file documented as of this encounter Goals Goal Patient Goal Type Associated Problems Recent Progress Patient-Stated? Author Maintain a healthy diet, exercise regularly and maintain an ideal body weight General No Jose Zhao MD documented as of this encounter Visit Diagnoses Diagnosis Chronic anxiety- Primary Anxiety state, unspecified Low testosterone Other testicular hypofunction documented in this encounter Discontinued Medications Medication Sig Discontinue Reason Start Date End Da te testosterone cypionate (DEPOTESTOTERONE CYPIONATE) 200 mg/mL IM OilIndications:Low testosterone Inject 1 mL into the muscle every 14 days. Reorder 01/10/2025 04/05/2025 ALPRAZolam (XANAX) 1 mg Oral TabletIndications:anxiety Take 1 Tablet by mouth 2 times daily as needed. Indications: anxious Reorder 01/10/2025 04/05/2025 documented as of this encounter Care Teams Hvac Maintenance Technician Relationship Specialty Start Date End Date Hui Nugent APRN [address] [place], [place] [address] PCP - General Nurse Practitioner 06/22/24 documented as of this encounter
--- OUTSIDE RECORDS SUMMARY | 2025-04-14 14:58 | XMS_ITS | Encounter Summary ---
Author Organization [place] [address] Care Team Providers Care Doula Name Role Phone Hui Nugent APRN Primary Care Provider [phone] Reason for Visit * Reason Onset Date Comments Appointment Needed 03/22/2025 Mychart video - CSV Encounter Details Date Type Department Care Team (Late st Contact Info) Description 03/22/2025 Telephone SEP Amy [address] [place] [address] Hui Nugent, CANDY COUNTER CLERK [address] [place] [address] Appointment Needed ([employer] video - CSV ) Social History Tobacco Use Types Packs/Day Years [...] on file documented as of this encounter Miscellaneous Notes * Telephone Encounter - Ursula Garcia RMA - 03/22/2025 2:15 PM EDT Appt scheduled * Telephone Encounter - Sandy Horowitz - 03/22/2025 1:25 PM EDT Select the most appropriate reason for this telephone message: Appointment Needed Appointment Requested By: Patient's spouse Provider Preference: PCP Only Type of Appt Needed: Other Mychart Video Visit Detailed Reason for Appt: CSV (Xanax and other meds) Requested Timeframe: Other The week of the Reason Scheduling Assistance is Needed: Call Center not permitted to schedule due to wanting to discuss CSV Return Method of Communication: Phone Call Additional Information: Would like Mychart video visit to be scheduled back to back with spouse. documented in this encounter Plan of Treatment Not on file documented as of this encounter Goals Goal Patient Goal Type Associated Problems Recent Progress Patient-Stated? Author Maintain a healthy diet, exercise regularly and maintain an ideal body weight General No Jose Zhao MD documented as of this encounter Visit Diagnoses Not on filedocumented in this encounter Care Teams Doula Relationship Specialty Start Date End Date Hui Nugent APRN [address] [place] [id number] PCP - General Nurse Practitioner 06/22/24 documented as of this encounter
--- OUTSIDE RECORDS SUMMARY | 2025-04-14 14:58 | XMS_ITS | Clinical Summary ---
Author Organization [facility] Burton T Address [address] [place] [address] Phone Care Team Providers Care Stock House Worker Name Role Phone RaffiHui Sandra CALDERA Primary Care Provider [phone] Allergies Active Allergy Reactions Criticality Noted Date Comments Ampicillin Hives 05/17/2015 Diamox Itching 05/17/2015 Doxycycline Other (See Comments) 05/29/2021 Iodinated Contrast Media Other (See Comments) Low 06/22/2024 Adverse reaction Medications ergocalciferol (DRISDOL) 50,000 unit Oral Capsule Take 50,000 Units by mouth once a week. Active ibuprofen (ADVIL;MOTRIN) 200 mg Oral Tablet Take 200 mg by mouth every 8 hours as needed for Pain. Active aspirin 81 mg Oral Tablet, Delayed Release (E.C.) Take 81 mg by mouth daily. Active celecoxib (CELEBREX) 200 mg Oral Capsule Take 200 mg by mouth 2 times daily. Active meclizine (ANTIVERT) 25 mg Oral Tablet Take 25 mg by mouth as needed for Dizziness (1/2 to 1 tab every 8 hours as needed). Active hydrOXYzine (ATARAX) 25 mg Oral Tablet Take 25 mg by mouth every 6 hours as needed. Active HYDROmorphone (DILAUDID, PF,) 2 mg/mL Inj Syringe 0.37 mg by Intrathecal route. Active Cholecalciferol , Vitamin D3, 1,250 mcg (50,000 unit) Oral CapsuleIndicati ons:Vitamin D deficiency EVERY WEEK Active hydroCHLOROthia zide 25 mg Oral TabletIndicatio ns:Peripheral edema Take 1 Tablet by mouth every morning. 90 Tablet 2 025 Active Tadalafil 20 mg Oral TabletIndicatio ns:Low testosterone 20 mg PO as needed before sexual activity 30 Tablet 5 025 Active BD LUER-REFUGIO SYRINGE 3 mL 21 gauge x 1 1/2 Misc SyringeIndicati ons:Low testosterone Use every 14 days with Testosterone injections 2 Each 3 025 Active promethazine (PHENERGAN) 25 mg Oral TabletIndicatio ns:Nausea TAKE 0.5-1 TABLET BY MOUTH EVERY 4 HOURS NEEDED FOR NAUSEA 30 Tablet 025 Active DULoxetine (CYMBALTA) 20 mg Oral Capsule, Delayed Release(E.C.)In dications:Chron ic anxiety TAKE 1 CAPSULE BY MOUTH 2 TIMES A DAY 200 Capsule 025 Active potassium chloride (KLOR-CON M) 20 mEq Oral Tab Sust.Rel. Particle/Luciana lIndications:Hy pokalemia TAKE 1 TABLET BY MOUTH 2 TIMES A DAY 60 Tablet 025 Active ALPRAZolam (XANAX) 1 mg Oral TabletIndicatio ns:anxiety Take 1 Tablet by mouth 2 times daily as needed. Indications: anxious 60 Tablet 2 025 Active testosterone cypionate (DEPOTESTOTERON E CYPIONATE) 200 mg/mL IM OilIndications: Low testosterone Inject 1 mL into the muscle every 14 days. 2 mL 025 Active KLOR-CON M20 20 mEq Oral Tab Sust.Rel. Particle/Luciana lIndications:Hy pokalemia TAKE 1 TABLET BY MOUTH 2 TIMES A DAY 60 Tablet 2 025 2024 Discontinued(R eorder) testosterone cypionate (DEPOTESTOTERON E CYPIONATE) 200 mg/mL IM OilIndications: Low testosterone Inject 1 mL into the muscle every 14 days. 2 mL 025 2024 Discontinued(R eorder) ALPRAZolam (XANAX) 1 mg Oral TabletIndicatio ns:anxiety Take 1 Tablet by mouth 2 times daily as needed. Indications: anxious 60 Tablet 2 025 09/23/ 2025 Discontinued(R eorder) potassium chloride (KLOR-CON M20) 20 mEq Oral Tab Sust.Rel. Particle/Luciana lIndications:Hy pokalemia Take 1 Tablet by mouth 2 times daily. 180 Tablet 025 2024 Discontinued Active Problems Problem Noted Date Diagnosed Date Primary hypogonadism in male 09/10/2024 Chronic anxiety 06/22/2024 Assessment & Plan (04/05/2025 1:46 PM EDT): Goal: achieve mental health wellness where ADLs, [...] expected State Prescription Drug Monitoring Program (i.e TAHSA, INSPECT, OARS): - report reviewed today Urine Drug Screen: - urine drug screen completed in the last year Controlled Substatnce Contract: - completed and on file Orders: ALPRAZolam (XANAX) 1 mg Oral Tablet; Take 1 Tablet by mouth 2 times daily as needed. Indications: anxious Assessment & Plan (01/17/2025 8:01 AM EDT): Goal: achieve mental health wellness where ADLs, family, social and work relationships are optimal Depression Screen Score: PHQ-2 Total Score: 0 PHQ-9 Total Score: 0 Addressed: - Current stressors contributing to sx explored and discussed Compliance: - compliant with medications Advice: - remain compliant with follow up and medications - advised to seek help or contact this office emergently if any suicidal or homicidal thoughts develop - advised to contact this office if increased depressive or anxiety symptoms develop - avoid alcohol and drug use Medication Management: - medication management decisions took place at today's visit (see orders) - responding as expected State Prescription Drug Monitoring Program (i.e TASHA, INSPECT, OARS): - report reviewed today Urine Drug Screen: - urine drug screen completed in the last year Controlled Substatnce Contract: - completed and on file Assessment & Plan (06/22/2024 10:20 PM EST): CSA reviewed and signed in office today, PDMP appropriate, continue alprazolam as prescribed. Patient reports benefit in reduction of symptoms. I do not suspect abuse, misuse or diversion. UDS today. Orders: ALPRAZolam (XANAX) 1 mg Oral Tablet; Take 1 Tablet by mouth 2 times daily as needed. Indications: anxious High risk medications (not anticoagulants) long- term use 06/22/2024 Assessment & Plan (06/22/2024 10:20 PM EST): Orders: COMPLIANCE BENZODIAZEPINE PANEL QUANT ONLY, URINE; Future Vitamin D deficiency 06/22/2024 Low testosterone 06/22/2024 Assessment & Plan (04/05/2025 1:46 PM EDT): Orders: testosterone cypionate (DEPOTESTOTERONE CYPIONATE) 200 mg/mL IM Oil; Inject 1 mL into the muscle every 14 days. Assessment & Plan (06/22/2024 10:20 PM EST): Biweekly IM injections of testosterone 200mg. Recheck serum testosterone and CBC in 3 months. History of left knee replacement 06/22/2024 GERD without esophagitis 06/22/2024 Tinnitus, bilateral 06/22/2024 Sensorineural hearing loss (SNHL) of both ears 1 08/23/2023 EVELYN (obstructive sleep apnea) 06/22/2024 Implantable intrathecal infusion pump present Assessment & Plan (06/22/2024 10:20 PM EST): He continues to be active with pain management with Dr. Mooney at [facility] for pain pump management with good control of chronic back pain. Chronic bilateral low back pain without sciatica 06/22/2024 Assessment & Plan (06/22/2024 10:20 PM EST): He continues to be active with pain management with Dr. Mooney at [facility] for pain pump management with good control of chronic back pain. Encounters Date Type Department Care Team Description 04/05/2025 1:00 PM EDT Telemedicine [address] [place] [address] Hui Nugent, GSE MECHANIC Chronic anxiety (Primary Dx); Low testosterone 04/05/[address] [place] [address] Hui Nugent, GSE MECHANIC Medication Refill 03/22/[address] [place] [address] Hui Nugent, GSE MECHANIC Appointment Needed ([employer] video - CSV ) 03/18/[address] [place] [address] Hui Nugent, GSE MECHANIC Medication Refill 03/08/[address] [place] [address] Hui Nugent, GSE MECHANIC Medication Refill 02/02/[address] [place] [address] Hui Nugent, GSE MECHANIC Medication Refill 01/13/[address] [place] [address] Hui Nugent, GSE MECHANIC Results 01/12/2025 Results Follow-Up [address] [place] [address] Hui Nugent, GSE MECHANIC TESTOSTERONE LEVEL TOTAL, CBC WITH DIFF, COMPREHENSIVE METABOLIC PANEL from Last 3 Months Surgical History Surgery Date Site/Laterality Comments CHOLECYSTECTOMY KNEE SURGERY BACK SURGERY Medical History Medical History Date Comments Sleep apnea Hyperlipidemia Heartburn Arthritis Social History Tobacco Use Types Packs/Day Years Used Date Smoking Tobacco: Never Smokeless Tobacco: Never Tobacco Cessation:Counseling Given: Not Answered Alcohol Use Standard Drinks/Week Comments Yes 0 (1 standard drink = 0.6 oz pur e alcohol) social PHQ-2 Answer Date Recorded PHQ-2 Total Score 0 01/10/2025 Sexually Active Control Partners Comments Yes Sex and Gender Information Value Date Recorded Sex Assigned at Not on file Legal Sex Male 12:18 AM EDT Gender Identity Not on file Sexual Orientation Not on file Last Filed Vital Signs Vital Sign Reading Time Taken Comments Blood Pressure 130/80 01/10/2025 1:03 PM EDT Pulse 78 01/10/2025 1:03 PM EDT Temperature 36.7 C (98 F) 01/10/2025 1:03 PM EDT Respiratory Rate 20 01/10/2025 1:03 PM EDT Oxygen Saturation 98% 01/10/2025 1:03 PM EDT Inhaled Oxygen Concentration - - Weight 109.3 kg (241 lb) 01/10/2025 1:03 PM EDT Height 182.9 cm (6') 01/10/2025 1:03 PM EDT Body Mass Index 32.69 01/10/2025 1:03 PM EDT Plan of Treatment Health Maintenance Due Date Last Done Comments DTaP/TDaP/Td (1 - Tdap) 1984 Hepatitis B Vaccine (1 of 3 - 19+ 3-dose series) 1984 Cologuard 2010 Colon Cancer Screening 2010 Colonoscopy 2010 FIT 2010 Sigmoidoscopy 2010 Virtual Colonography 2010 Zoster (1 of 2) 10/18/2015 Pneumococcal Vaccine 50+ (2 of 2 - PCV) 04/25/2018 04/25/2017 COVID-19 Vaccine (1 - season) 2025 Influenza Vaccine (#1) 2025 2, 09/22/2020, 04/25/2017, Additional history exists Wellness Exam Medicare 01/11/2026 01/10/2025 Meningococcal B Vaccine Aged Out No l onger eligible based on patient's age to complete this topic Goals Goal Patient Goal Type Associated Problems Recent Progress Patient-Stated? Author Maintain a healthy diet, exercise regularly and maintain an ideal body weight General No Jose Zhao MD Insurance [employer] MEDICARE PPO MR * Guarantor: Leonel Kern Account Type Relation to Patient Date of Phone Billing Address [facility] Personal Family Account Self 1965 [address] [place] [address] [employer] MEDICARE PPO MR Care Teams Stock House Worker Relationship Specialty Start Date End Date Hui [place] [address] [place] [address] PCP - General Nurse Practitioner 06/22/24
--- OUTSIDE RECORDS SUMMARY | 2025-04-14 14:58 | XMS_ITS | Encounter Summary ---
Author Organization [place] [address] Care Team Providers Care Plaster Model And Mold Maker Name Role Phone Hui Nugent APRN Primary Care Provider [phone] Reason for Visit * Reason Onset Date Comments Results 01/12/2025 Lab 12/14 Encounter Details Date Type Department Care Team (Latest Contact Info) Description 01/12/2025 Results Follow-Up [facility] Amy [address] [place] [id number] Hui Nugent, FLOOR COVERING LAYER [address] [place] [address] TESTOSTERONE LEVEL TOTAL, CBC WITH DIFF, COMPREHENSIVE METABOLIC PANEL Social History Tobacco Use Types Packs/Day Years [...] encounter Miscellaneous Notes * Telephone Encounter - Rebecca Nair CCMA - 01/13/2025 4:47 PM EDT Images from the original note were not included. Select the most appropriate reason for this telephone message: Patient Calling for Results Patient called for results on Lab Which Provider ordered the test? Hui Nugent Date of test: 12/14 Advised patient of: abnormal result. Patient Instructions/ Questions: can he do the replacement therapy one time weekly, he has been doing one time every other week and has not been able to reach goal? Medications Ordered/Pended (if yes, list medication): No Medications/Orders Needed (if yes, list orders): No Pharmacy Location Verified: No Other: Results given to patient Hui Nugent APRN 01/12/2025 9:26 PM EDT labs ok except testosterone is still low, continue replacement therapy and recheck in 3 months documented in this encounter Plan of Treatment Not on file documented as of this encounter Goals Goal Patient Goal Type Associated Problems Recent Progress Patient-Stated? Author Maintain a healthy diet, exercise regularly and maintain an ideal body weight General No Jose Zhao MD documented as of this encounter Visit Diagnoses Not on filedocumented in this encounter Care Teams Plaster Model And Mold Maker Relationship Specialty Start Date End Date Hui Nugent APRN [address] [place] [address] PCP - General Nurse Practitioner 06/22/24 documented as of this encounter
--- OUTSIDE RECORDS SUMMARY | 2025-04-14 14:58 | XMS_ITS | Clinical Summary ---
Author Organization [facility] Address [address] [place] [address] Care Team Providers Care Beater Machine Operator Name Role Phone Aislinn Lynch MD Primary Care Provider Matthias Cortes PA-C Unavailable [phone] Des Tarango MD Unavailable Allergies Active Allergy Reactions Criticality Noted Date Comments Ampicillin Anaphylaxis 12/20/2013 Medications SIMVASTATIN POIndications:Low back pain,Cervical pain,Numbness and tingling in hands,Numbness and tingling of both legs Active CELECOXIB (CELEBREX PO)Indications:Low back pain,Cervical pain,Numbness and tingling in hands,Numbness and tingling of both legs Active ASPIRIN (ASPIR-81 PO)Indications:Low back pain,Cervical pain,Numbness and tingling in hands,Numbness and tingling of both legs Active Active Problems No known active problems Social History Tobacco Use Types Packs/Day Years Used Date Smoking Tobacco: Never Assessed Sex and Gender Information Value Date Recorded Sex Assigned at Not on file Legal Sex Male 8:31 AM EDT Gender Identity Not on file Sexual Orientation Not on file Last Filed Vital Signs Vital Sign Reading Time Taken Comments Blood Pressure - - Pulse - - Temperature - - Respiratory Rate - - Oxygen Saturation - - Inhaled Oxygen Concentration - - Weight 88 kg (194 lb) 12/20/2013 2:26 PM EDT Height 182.9 cm (6') 12/20/2013 2:26 PM EDT Body Mass Index 26.31 12/20/2013 2:26 PM EDT Plan of Treatment Health Maintenance Due Date Last Done Comments COLOGUARD 1965 COLONOSCOPY 1965 Colorectal Screening Combination 1965 FIT 1965 HEP C SCREENING 1965 SIGMOIDOSCOPY 1965 ANNUAL WELLNESS EXAM 1968 DTAP/TDAP/TD VACCINE (1 - Tdap) 1984 Shingles Vaccine (Shingrix) (1 of 2) 10/18/2015 INFLUENZA VACCINE (#1) 2025 HEP A VACCINE Aged Out No longer elig ible based on patient's age to complete this topic HIB VACCINE Aged Out No longer eligi ble based on patient's age to complete this topic ROTOVIRUS VACCINE Aged Out No longer eligible based on patient's age to complete this topic Insurance [employer]ICAID [employer]ID Care Teams Beater Machine Operator Relationship Specialty [place] [address] [place] [address] PCP - General Family Medicine 12/20/13 Matthias Cortes PA-C [address] [place] [address] [address] [place] [address] Physician Surtass Analyst 12/20/13 Des Tarango MD [address] [place], [place] [id number] Orthopedic Surgery 02/22/14
--- OUTSIDE RECORDS SUMMARY | 2025-04-14 14:58 | XMS_ITS | Encounter Summary ---
Author Organization [facility] Address [address] [place] [address] Care Team Providers Care Archival Studies Professor Name Role Phone Aislinn Lynch MD Primary Care Provider Matthias Cortes PA-C Unavailable [phone] Des Tarango MD Unavailable Encounter Details Date Type Department Care Team (Late st Contact Info) Description 04/15/2014 Telephone [facility] Specialties Orthopedics [address] [place] [address] [address] Des Tarango MD [address] [place] [address] Social History Tobacco Use Types Packs/Day Years Used Date Smoking Tobacco: Never Assessed Sex and Gender Information Value Date Recorded Sex Assigned at Not on file Legal Sex Male 8:31 AM EDT Gender Identity Not on file Sexual Orientation Not on file documented as of this encounter Miscellaneous Notes * Telephone Encounter - Roxi Bhatt LPN - 04/15/2014 10:53 AM EDT Patient has a question concerning on status of stimulator * Telephone Encounter - Latosha Mercedes - 04/15/2014 9:30 AM EDT [phone] patient checking on stimulator said they thought they were going to get one documented in this encounter Plan of Treatment Not on file documented as of this encounter Visit Diagnoses Not on filedocumented in this encounter Care Teams Archival Studies Professor Relationship Specialty [place] [address] [place] [address] PCP - General Family Medicine 12/20/13 Matthias Cortes PA-C [address] [place] [address] [place] [address] Physician Telephone Installer 12/20/13 Des Tarango MD [address] [place] [address] Orthopedic Surgery 02/22/14 documented as of this encounter
--- OUTSIDE RECORDS SUMMARY | 2025-04-14 14:58 | XMS_ITS | Encounter Summary ---
Author Organization [facility] Address [address] [place] [address] Care Team Providers Care Lead Simulation Modeling Engineer Name Role Phone Aislinn Lynch MD Primary Care Provider Matthias Cortes PA-C Unavailable [phone] Des Tarango MD Unavailable Encounter Details Date Type Department Care Team (Late st Contact Info) Description 12/09/2014 Telephone [facility] Specialties Orthopedics [address] [place] [address] [address] Des Tarango MD [address] [place] [address] Social History Tobacco Use Types Packs/Day Years Used Date Smoking Tobacco: Never Assessed Sex and Gender Information Value Date Recorded Sex Assigned at Not on file Legal Sex Male 8:31 AM EDT Gender Identity Not on file Sexual Orientation Not on file documented as of this encounter Miscellaneous Notes * Telephone Encounter - Roxi Bhatt LPN - 12/13/2014 9:45 AM EDT Informed patient that Dr. Tarango does not write for disability. Informed patient that for any pain medication needs he would have to contact his PCP. Patient stated understanding. * Telephone Encounter - Gabriela Latif - 12/09/2014 1:44 PM EDT Patient's called stating Dr Tarango agreed to write a letter for disability. Has an upcoming hearing. Requested new contact info for Sukhdeep. Please call. [phone] Gabriela Yates documented in this encounter Plan of Treatment Not on file documented as of this encounter Visit Diagnoses Not on filedocumented in this encounter Care Teams Lead Simulation Modeling Engineer Relationship Specialty [place] [address] [place] [address] PCP - General Family Medicine 12/20/13 Matthias Cortes PA-C [address] [place] [address] [address] Physician Content Strategist 12/20/13 Des Tarango MD [facility] [place] [address] Orthopedic Surgery 02/22/14 documented as of this encounter
--- OUTSIDE RECORDS SUMMARY | 2025-04-14 14:58 | XMS_ITS | Encounter Summary ---
Author Organization [place] [address] Care Team Providers Care Security Operations Analyst Name Role Phone Hui Nugent APRN Primary Care Provider [phone] Reason for Visit * Reason Onset Date Comments Medication Refill 03/18/2025 Encounter Details Date Type Department Care Team (Late st Contact Info) Description 03/18/2025 Refill [facility] Amy [address] [place] [address] Hui Nugent, TRIMMER LOADER [address] [place] [address] Medication Refill Social History Tobacco Use Types Packs/Day Years [...] Refills Last Filled Start Date End Date potassium chloride (KLOR-CON M20) 20 mEq Oral Tab Sust.Rel. Particle/CrystalIn dications:Hypokale daphnie Take 1 Tablet by mouth 2 times daily. 180 Tablet 03/18/2025 04/05/2025 documented in this encounter Plan of Treatment Not on file documented as of this encounter Goals Goal Patient Goal Type Associated Problems Recent Progress Patient-Stated? Author Maintain a healthy diet, exercise regularly and maintain an ideal body weight General No Jose Zhao MD documented as of this encounter Visit Diagnoses Diagnosis Hypokalemia Hypopotassemia documented in this encounter Discontinued Medications Medication Sig Discontinue Reason Start Date End Da te KLOR-CON M20 20 mEq Oral Tab Sust.Rel. Particle/CrystalIndicati ons:Hypokalemia TAKE 1 TABLET BY MOUTH 2 TIMES A DAY Reorder 12/27/2024 03/18/2025 documented as of this encounter Care Teams Security Operations Analyst Relationship Specialty Start Date End Date Hui Nugent, TRIMMER LOADER [address] [place] [address] PCP - General Nurse Practitioner 06/22/24 documented as of this encounter
--- OUTSIDE RECORDS SUMMARY | 2025-04-14 14:58 | XMS_ITS | Encounter Summary ---
Author Organization [facility] Address [address] [place] [address] Care Team Providers Care Production Assembly Operator Name Role Phone Aislinn Lynch MD Primary Care Provider Matthias Cortes PA-C Unavailable [phone] Des Tarango MD Unavailable Encounter Details Date Type Department Care Team (Late st Contact Info) Description 12/13/2014 Telephone [facility] Special[facility] Orthopedics [address] [place] [address] [address] Des Tarango MD [address] [place] [address] Social History Tobacco Use Types Packs/Day Years Used Date Smoking Tobacco: Never Assessed Sex and Gender Information Value Date Recorded Sex Assigned at Not on file Legal Sex Male 8:31 AM EDT Gender Identity Not on file Sexual Orientation Not on file documented as of this encounter Miscellaneous Notes * Telephone Encounter - Gabriela Latif - 12/13/2014 11:01 AM EDT Per patient request, faxed records to Dr Tarango's new office at [phone] documented in this encounter Plan of Treatment Not on file documented as of this encounter Visit Diagnoses Not on filedocumented in this encounter Care Teams Production Assembly Operator Relationship Specialty [place] [address] [place] [address] PCP - General Family Medicine 12/20/13 Matthias Cortes PA-C [address] [place] [address] [address] [place] [address] Physician Thermograph Operator 12/20/13 Des Tarango MD [address] [place] [address] Orthopedic Surgery 02/22/14 documented as of this encounter
--- OUTSIDE RECORDS SUMMARY | 2025-04-14 14:58 | XMS_ITS | Encounter Summary ---
Author Organization [place] [address] Care Team Providers Care Information Systems Architect Name Role Phone Hui Nugent APRN Primary Care Provider [phone] Reason for Visit * Reason Comments Medication Refill Encounter Details Date Type Department Care Team (Late st Contact Info) Description 03/08/2025 Refill [facility] Amy [address] [place] [address] Hui Nugent APRN [address] [place] [address] Medication Refill Social History Tobacco Use Types [...] Refills Last Filled Start Date End Date DULoxetine (CYMBALTA) 20 mg Oral Capsule, Delayed Release(E.C.)Indic ations:Chronic anxiety TAKE 1 CAPSULE BY MOUTH 2 TIMES A DAY 200 Capsule 03/09/2025 documented in this encounter Miscellaneous Notes * Telephone Encounter - Veronique Landeros CPhT - 03/09/2025 10:22 AM EDT Duloxetine Future Visit: N/A Last Assessed Visit: 01/10/25 Follow-Up Date: 04/12/25 All protocols passed. Refills approved and sent to requesting pharmacy. Routed to [facility] if an appointment is needed. documented in this encounter Plan of Treatment Not on file documented as of this encounter Goals Goal Patient Goal Type Associated Problems Recent Progress Patient-Stated? Author Maintain a healthy diet, exercise regularly and maintain an ideal body weight General No Jose Zhao MD documented as of this encounter Visit Diagnoses Diagnosis Chronic anxiety Anxiety state, unspecified documented in this encounter Discontinued Medications Medication Sig Discontinue Reason Start Date End Da te DULoxetine (CYMBALTA) 20 mg Oral Capsule, Delayed Release(E.C.)Indications :Chronic anxiety Take 1 Capsule by mouth 2 times daily. 10/01/2024 03/09/2025 documented as of this encounter Care Teams Information Systems Architect Relationship Specialty Start Date End Date Hui Nugent APRN [address] [place] [address] PCP - General Nurse Practitioner 06/22/24 documented as of this encounter
--- OUTSIDE RECORDS SUMMARY | 2025-04-14 14:58 | XMS_ITS | Encounter Summary ---
Author Organization [facility] Address [address] [place] [address] Care Team Providers Care Agricultural Loan Officer Name Role Phone Aislinn Lynch MD Primary Care Provider Matthias Cortes PA-C Unavailable [phone] Des Tarango MD Unavailable Reason for Visit * Reason Onset Date Comments Follow-up 03/02/2014 Encounter Details Date Type Department Care Team (Late st Contact Info) Description 03/02/2014 Telephone [facility] Orth[facility] [address] [place] [address] [address] Des Tarango MD [address] [place] [address] Follow-up Social History Tobacco Use Types Packs/Day Years Used Date Smoking Tobacco: Never Assessed Sex and Gender Information Value Date Recorded Sex Assigned at Not on file Legal Sex Male 8:31 AM EDT Gender Identity Not on file Sexual Orientation Not on file documented as of this encounter Miscellaneous Notes * Telephone Encounter - Roxi Bhatt LPN - 03/02/2014 9:40 AM EDT Patient seen on 02-22-14. MRI of cervical and lumbar ordered. Imaging needs PA. Please complete office note from 02-22-14. Thanks. documented in this encounter Plan of Treatment Not on file documented as of this encounter Visit Diagnoses Not on filedocumented in this encounter Care Teams Agricultural Loan Officer Relationship Specialty [place] [address] [place] [address] PCP - General Family Medicine 12/20/13 Matthias Cortes PA-C [address] [place] [address] [address] [place] [id number] Physician Tablet Making Machine Operator Helper 12/20/13 Des Tarango MD [address] [place] [address] Orthopedic Surgery 02/22/14 documented as of this encounter
--- OUTSIDE RECORDS SUMMARY | 2025-04-14 14:58 | XMS_ITS | Encounter Summary ---
Author Organization [facility] Address [address] [place] [address] Care Team Providers Care Ship Steward Name Role Phone Aislinn Lynch MD Primary Care Provider Matthias Cortes PA-C Unavailable [phone] Des Tarango MD Unavailable Reason for Visit * Reason Onset Date Comments Follow-up 03/09/2014 Encounter Details Date Type Department Care Team (Late st Contact Info) Description 03/09/2014 Telephone [facility] Orthopedics [address] [place] [address] [address] Des Tarango MD [address] [place] [address] Follow-up Social History Tobacco Use Types Packs/Day Years Used Date Smoking Tobacco: Never Assessed Sex and Gender Information Value Date Recorded Sex Assigned at Not on file Legal Sex Male 8:31 AM EDT Gender Identity Not on file Sexual Orientation Not on file documented as of this encounter Miscellaneous Notes * Telephone Encounter - Roxi Bhatt LPN - 03/10/2014 1:55 PM EDT Lumbar MRI approval# [id number]. Patient notified. * Telephone Encounter - Roxi Bhatt LPN - 03/09/2014 10:02 AM EDT Cervical MRI approval # [id number] Lumbar MRI is under medical review at this time. Patient notified. documented in this encounter Plan of Treatment Not on file documented as of this encounter Visit Diagnoses Not on filedocumented in this encounter Care Teams Ship Steward Relationship Specialty [place] [address] [place] [address] PCP - General Family Medicine 12/20/13 Matthias Cortes PA-C [address] [place] [address] [address] Physician Material Man 12/20/13 Des Tarango MD [address] [place] [address] Orthopedic Surgery 02/22/14 documented as of this encounter
--- OUTSIDE RECORDS SUMMARY | 2025-04-14 14:59 | XMS_ITS | Encounter Summary ---
Author Organization [facility] Address [address] [place] [address] Care Team Providers Care In House Counsel Name Role Phone Aislinn Lynch MD Primary Care Provider Matthias Cortes PA-C Unavailable [phone] Des Tarango MD Unavailable Encounter Details Date Type Department Care Team (Late st Contact Info) Description 02/23/2014 Telephone [facility] Orthopedics [address] [place] [address] [address] Des Tarango MD [facility] [place] [address] Social History Tobacco Use Types Packs/Day Years Used Date Smoking Tobacco: Never Assessed Sex and Gender Information Value Date Recorded Sex Assigned at Not on file Legal Sex Male 8:31 AM EDT Gender Identity Not on file Sexual Orientation Not on file documented as of this encounter Miscellaneous Notes * Telephone Encounter - Roxi Bhatt LPN - 03/02/2014 10:03 AM EDT Awaiting office notes to do PA. * Telephone Encounter - Daren Latosha - 02/23/2014 3:16 PM EDT Patient called to see if you did a PA for MRI please call [phone] documented in this encounter Plan of Treatment Not on file documented as of this encounter Visit Diagnoses Not on filedocumented in this encounter Care Teams In House Counsel Relationship Specialty [place] [address] [place] [address] PCP - General Family Medicine 12/20/13 Matthias Cortes PA-C [address] [place] [address] [id number] Physician Sample Worker 12/20/13 Des Tarango MD [facility] [place] [address] Orthopedic Surgery 02/22/14 documented as of this encounter
--- OUTSIDE RECORDS SUMMARY | 2025-04-14 14:59 | XMS_ITS | Encounter Summary ---
Author Organization [facility] Address [address] [place] [address] Care Team Providers Care Bowling Floor Desk Clerk Name Role Phone Aislinn Lynch MD Primary Care Provider Matthias Cortes PA-C Unavailable [phone] Des Tarango MD Unavailable Encounter Details Date Type Department Care Team (Late st Contact Info) Description 02/24/2014 Telephone [facility] Orthopedics [address] [place] [address] [address] Des Tarango MD [address] [place] [address] Social History Tobacco Use Types Packs/Day Years Used Date Smoking Tobacco: Never Assessed Sex and Gender Information Value Date Recorded Sex Assigned at Not on file Legal Sex Male 8:31 AM EDT Gender Identity Not on file Sexual Orientation Not on file documented as of this encounter Miscellaneous Notes * Telephone Encounter - Gabriela Latif - 02/24/2014 10:00 AM EDT Need PreCert for MRI [facility] Rosita [phone] phone [phone] fax documented in this encounter Plan of Treatment Not on file documented as of this encounter Visit Diagnoses Not on filedocumented in this encounter Care Teams Bowling Floor Desk Clerk Relationship Specialty [place] [address] [place] [address] PCP - General Family Medicine 12/20/13 Matthias Cortes PA-C [address] [place] [address] [address] [place] [address] Physician Tar Pot Worker 12/20/13 Des Tarango MD [address] [place], [place] [id number] Orthopedic Surgery 02/22/14 documented as of this encounter
--- OUTSIDE RECORDS SUMMARY | 2025-04-14 14:59 | XMS_ITS | Clinical Summary ---
Author Organization [facility] Address [facility] [place] [address] Care Team Providers Care Headhunter Name Role Phone Zoila Sheltonzastacy Acosta MANAGER PROGRAM MANAGEMENT Unavailable Un available Rekha Hilliard Primary Care Provider [phone] Source Comments This information has been disclosed to you from confidential records protectedfrom disclosure by state law. You shall make no further disclosure of thisinformation without the specific, written, and informed release of theindividual to whom it pertains, or as otherwise permitted by law. A generalauthorization for the release of medical or other information is not sufficientfor the purposes of therelease of HIV test results or diagnoses. [id number] [facility] Allergies Active Allergy Reactions Criticality Noted Date Comments Acetazolamide Itching 02/01/2016 Ampicillin 08/23/2015 Medications celecoxib (CELEBREX) 200 MG capsule Take 200 mg by mouth daily. 6 Active losartan-hydroc hlorothiazide (HYZAAR) 50-12.5 mg per tablet Take 1 tablet by mouth daily. 6 Active meclizine (ANTIVERT) 25 mg tablet Take 25 mg by mouth as needed. 5 Active potassium chloride (KLOR-CON, K-DUR) 20 MEQ tablet Take 20 mEq by mouth daily. 6 Active promethazine (PHENERGAN) 25 MG tablet Take 25 mg by mouth as needed. 6 Active QUEtiapine (SEROQUEL) 25 MG tablet Take 25 mg by mouth daily. 6 Active ranitidine (ZANTAC) 150 MG tablet Take 150 mg by mouth daily. 5 Active simvastatin (ZOCOR) 20 MG tablet Take 20 mg by mouth daily. 6 Active FAUSTO ASPIRIN ORAL Take 200 mg by mouth daily. Active HYDROcodone-james taminophen (NORCO) 7.5-325 mg per tablet Take 1 tablet by mouth every 6 hours as needed for Pain. Active ergocalciferol (ERGOCALCIFEROL ) 50,000 unit capsule Take 50,000 Units by mouth once a week. Active TRAVEL SICKNESS, MECLIZINE, 25 mg tablet 4 6 Active sertraline (ZOLOFT) 25 MG tablet 2 6 Active divalproex (DEPAKOTE) [address] tabletIndicatio ns:Migraine Prevention 1 tab (250mg) qhs; may increase by 1 tab each week to max 2 tabs (500mg) bid Indications: Migraine Prevention 90 tablet 5 6 Active Active Problems Patient Care Coordination No te Formatting of this note migh t be different from the original. 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 Family History Relation Status Comments Father Alive Mother Alive Social History Tobacco Use Types Packs/Day Years Used Date Smoking Tobacco: Never Alcohol Use Standard Drinks/Week Comments No 0 (1 standard drink = 0.6 oz pur e alcohol) Sex and Gender Information Value Date Recorded Sex Assigned at Not on file Legal Sex Male 9:37 PM EST Gender Identity Not on file Sexual Orientation Not on file Last Filed Vital Signs Vital Sign Reading Time Taken Comments Blood Pressure 123/84 05/13/2016 12:01 PM EDT Pulse 78 05/13/2016 12:01 PM EDT Temperature 36.3 C (97.3 F) 02/01/2016 9:38 AM EDT Respiratory Rate 16 02/01/2016 9:38 AM EDT Oxygen Saturation 95% 02/01/2016 9:38 AM EDT Inhaled Oxygen Concentration 95% 02/01/2016 9 :38 AM EDT Weight 103.9 kg (229 lb) 05/13/2016 12:01 PM EDT Height 182.9 cm (6') 02/01/2016 9:38 AM EDT Body Mass Index 31.06 02/01/2016 9:38 AM EDT Plan of Treatment Not on file Insurance [facility] [place] [address] Care Teams Headhunter Relationship Specialty Start Date End Date Rekha Hilliard [address] [address] PCP - General 10/30/15 Sandy Shelton CNP Nurse Practitioner Nurse Practitioner 09/28/15
--- OUTSIDE RECORDS SUMMARY | 2025-04-14 14:59 | XMS_ITS | Clinical Summary ---
Author Organization [facility] Address [address] [place] [address] Care Team Providers Care Vp Product Management Name Role Phone Provider, No Known Primary Care Provider [phone] Social History Tobacco Use Types Packs/Day Years Used Date Smoking Tobacco: Never Assessed Abuse Screen Answer Date Recorded Unsafe at Home or Work/School Not on file Feels Threatened by Someone? Not on file 05/2023 Does Anyone Keep You from Co ntacting Others or Doint Things Outside the Home? Not on file 04/23/2023 Physical Sign of Abuse Present Not on file 1 Housing Stability Answer Date Recorded Current Living Arrangements Not on file 04/13 Potentially Unsafe Housing Conditions Not on jose e 04/23/2023 Family and Community Support Answer Kirt e Recorded Help with Day-to-Day Activities Not on file 04/23/2023 Lonely or Isolated Not on file 04/23/2023 Employment Answer Date Recorded Do you want help finding or keeping work or a amanda b? Not on file 04/23/2023 Disabilities Answer Date Recorded Concentrating, Remembering, or Making Decisions Difficulty Not on file 04/23/2023 Doing Errands Independently Difficulty Not on fi le 04/23/2023 Education Answer Date Recorded Help with school or training? Not on file Preferred Language Not on file 04/23/2023 Sex and Gender Information Value Date Recorded Sex Assigned at Not on file Legal Sex Male 10:17 AM EST Gender Identity Not on file Sexual Orientation Not on file Plan of Treatment Health Maintenance Due Date Last Done Comments ANNUAL PHYSICAL 1965 HEPATITIS C SCREENING 1965 TDAP/TD VACCINES (1 - Tdap) 1984 COLOGUARD 2010 COLON CANCER SCREENING 5 YEAR SIGMOIDOSCOPY 2010 COLONOSCOPY 2010 COL[address]ECTAL CANCER SCREENING 2010 CT COLONOGRAPHY 2010 FECAL OCCULT BLOOD TEST 2010 FIT Testing (1 year) 2010 Pneumococcal Vaccine 50+ (1 of 1 - PCV) 10/18/2015 ZOSTER VACCINE (1 of 2) 10/18/2015 INFLUENZA VACCINE 02/11/2025 Insurance [employer] Care Teams Vp Product Management Relationship Specialty Start Date End Date Provider, [place] [address] PCP - General 07/23/16
--- OUTSIDE RECORDS SUMMARY | 2025-04-14 14:59 | XMS_ITS | Encounter Summary ---
Author Organization [place] [address] Care Team Providers Care Hydraulic Plumber Name Role Phone Hui Nugent APRN Primary Care Provider [phone] Reason for Visit * Reason Comments Medication Refill Encounter Details Date Type Department Care Team (Late st Contact Info) Description 04/05/2025 Refill SEP Amy [address] [place] [address] Hui Nugent APRN [address] [place] [address] Medication Refill Social History Tobacco Use Types [...] Start Date End Date potassium chloride (KLOR-CON M) 20 mEq Oral Tab Sust.Rel. Particle/CrystalInd ications:Hypokalemi a TAKE 1 TABLET BY MOUTH 2 TIMES A DAY 60 Tablet 04/05/2025 documented in this encounter Plan of [...] Discontinue Reason Start Date End Da te potassium chloride (KLOR-CON M20) 20 mEq Oral Tab Sust.Rel. Particle/CrystalIndicati ons:Hypokalemia Take 1 Tablet by mouth 2 times daily. 03/18/2025 04/05/2025 documented as of this encounter Care Teams Hydraulic Plumber Relationship Specialty Start Date End Date Hui Nugent, [address] [place], [place] [address] PCP - General Nurse Practitioner 06/22/24 documented as of this encounter
--- NOTE | 2025-04-14 15:02 | XR_ITS ---
FINAL REPORT CLINICAL HISTORY: low back pain r/t injury COMPARISON: None FINDINGS: 3 views of the lumbar spine were obtained. Posterior and interbody fusion at L5-S1. There is no evidence of fracture. Grade 1 spondylolisthesis of L5 on S1. The vertebrae are normal in height. Disc spaces are preserved. No paraspinous soft tissue abnormalities identified. IMPRESSION: Postoperative changes without acute bony abnormality. Spondylolisthesis of L5 on S1. Reviewed, Interpreted and Dictated by Ata Qureshi MD Transcribed by Ashley Tucker Authenticated and . [facility]
== END 2025-04-14 23:59 | disposition home or self-care (01) ==
LOC: RAD 14:56
PROVIDERS: PCP Nurse Practitioner Family; Visit Provider Nurse Practitioner Family
DX: M43.17 Spondylolisthesis, lumbosacral region (principal); S39.92XA Unspecified injury of lower back, initial encounter; Z98.1 Arthrodesis status
CPT/HCPCS: 72100